=== PATIENT | female | born 1985 | race Caucasian/White ===

== ENCOUNTER 2021-01-24 12:06 | Emergency (ER) | payer BC, SELFPAY ==
--- NOTE | ~2021-01-24 | CT_ITS ---
EXAMINATION: CT ABDOMEN AND PELVIS WITH CONTRAST CLINICAL INFORMATION: Left-sided abdominal pain COMPARISON: Previous CT of the abdomen and pelvis June 2018 TECHNIQUE: Multidetector volumetric images were obtained from the superior aspect of the liver through the pubic symphysis following administration 85 mL of Omnipaque 350 intravenous contrast. Sagittal and coronal reformatted images were obtained on the technologist's workstation. Oral contrast: Yes This CT examination was performed using dose optimization techniques as appropriate, variously including the following: *Automated exposure control *Adjustment of mA and/or kV according to patient size (this includes techniques or standardized protocols for targeted exams where dose is matched to indication/reason for exam; i.e. extremities or head) *Use of iterative reconstruction technique DLP: 307 mGy-cm FINDINGS: LUNG BASES: The visualized lung bases are unremarkable. LIVER, GALLBLADDER, AND BILIARY TREE: The liver is normal in size, shape, and attenuation. No focal hepatic lesion or biliary ductal dilatation is present. The gallbladder is unremarkable with no evidence of radiopaque gallstones, gallbladder wall thickening, or obvious pericholecystic inflammatory changes. PANCREAS: Unremarkable. SPLEEN: Unremarkable. ADRENAL GLANDS: Unremarkable. KIDNEYS AND URETERS: The kidneys are normal in size, shape, and attenuation. No hydronephrosis, hydroureter, or calculi seen. No perinephric stranding. BLADDER: Unremarkable. GASTROINTESTINAL TRACT: The small and large bowel are unremarkable. The appendix is unremarkable. ABDOMINAL WALL: No significant hernia is appreciated. LYMPH NODES: Normal. VASCULAR: Unremarkable. PELVIC VISCERA: There is a 2.3 cm right sided ovarian or adnexal cyst. There is a small amount of fluid in the pelvis. Uterus and left adnexa are unremarkable. There are prominent pelvic vessels questionable for pelvic congestion. OSSEOUS STRUCTURES: Unremarkable. CT/CT abdomen pelvis w con IMPRESSION: Small right adnexal cyst and small amount of fluid in the pelvis. Findings are questionable for a ruptured ovarian cyst. This could be better evaluated with pelvic ultrasound. Prominent pelvic vessels questionable for pelvic congestion.
[2021-01-24 12:23] VITALS: BP 111/71; PULSE 80; RESP 18; TEMP 36.3; O2SAT 100; BMI 19.2
--- NOTE | 2021-01-24 15:32 | ED_ITS ---
HPI - Abdominal Pain General Chief Complaint: Abdominal Pain Stated Complaint: abd pain Time Seen by Provider: 01/24/21 15:06 Source: patient Mode of arrival: ambulatory Limitations: no limitations History of Present Illness HPI narrative: 35-year-old female previously healthy here with complaints of abdominal pain intermittent over the last month worsened over the last 24-36 hours. No associated nausea, vomiting, diarrhea, urinary symptoms, fevers, chills. She does have occasional constipation but her last BM was yesterday and normal. Menses are regular. No vaginal bleeding or discharge that is irregular. Went to urgent care today referred into the emergency department for further evaluation. Patient tells me that pain is worsened with eating fatty or greasy foods and sometimes radiates to her back. Related Data Previous Rx's Medication Instructions Recorded nitrofurantoin 100 mg PO Q12H 5 Days #10 cap 01/24/21 monohydrate/macrocrystals 100 mg capsule (Macrobid) Allergies Allergy/AdvReac Type Severity Reaction Status Date / Time No Known Allergies Allergy Unverified 11/28/19 17:23 [No Known Allergies*] Review of Systems Review of Systems Yes all other systems are reviewed and are negative Constitutional: Reports no additional constitutional complaints, Denies body ache(s), Denies chills, Denies fever(s), Denies headache(s) and Denies weakness Eyes: Reports no additional eye complaints and Denies change in vision Reports system reviewed and no additional complaints, except as documented, Denies dizziness, Denies headache(s), Denies nasal congestion, Denies nasal di scharge and Denies neck pain Cardiovascular: Reports no additional cardiovascular complaints, Denies chest pain, Denies leg edema and Denies dyspnea Respiratory: Reports no additional respiratory complaints, Denies cough and Denies dyspnea Gastrointestinal: Reports no additional gastrointestinal complaints, Reports abdominal pain, Denies diarrhea, Denies nausea and Denies vomiting Genitourinary: Reports no additional female genitourinary complaints and Denies urinary incontinence Musculoskeletal: Reports no additional musculoskeletal complaints, Denies back pain, Denies arthralgias, Denies joint swelling, Denies neck pain, Denies numbness and Denies tingling Skin/Breast: Reports system reviewed and no additional complaints, except as docu and Denies rash Reports system reviewed and no additional complaints, except as documented, Denies Abnormal speech present, Denies dizziness, Denies headache(s), Denies numbness, Denies tingling and Denies weakness Physical Exam Vital Signs: Vital Signs: Last Vital Signs Temp 97.3 F 01/24/21 12:23 Pulse 80 01/24/21 12:23 Resp 18 01/24/21 12:23 BP 111/71 01/24/21 12:23 Pulse Ox 100 01/24/21 12:23 Body Mass Index 19.2 Const: General: cooperative, healthy appearing, comfortable and no acute distress Orientation/consciousness: patient oriented x3 Limitations: no limitations HENMT: Head: Yes normal to inspection Ears: hearing grossly normal bilaterally and TM's normal bilaterally General nose exam: Normal external nose present Face and sinus: Yes normal facial exam Mouth: Normal oral and palatal mucosa present Throat: Yes posterior oropharynx normal, Yes tonsils normal and Yes uvula midline Eyes: General: appearance normal, both eyes and all related structures Pupils: Equal, round and reactive pupils present Neck: Neck: Yes normal visual inspection Chest: Chest palpation & inspection: normal inspection of the chest Resp: Effort & Inspection: normal respiratory effort Auscultation: clear to auscultation bilaterally Cardio: Rate: regular rate Rhythm: regular rhythm Peripheral pulses: Peripheral pulses 2+ throughout GI: Inspection: Yes normal to inspection Palpation (GI): Soft to palpation and Tenderness to palpation present (GI) (Diffusely tender. No rebound or guarding) Auscultation: normal bowel sounds Back/Spine/Pelvis: Thoracic/Lumbar Spine: thoracic and lumbar spine normal to inspection Skin: General skin exam: no rashes or lesions noted Neuro: General: patient oriented x3, no focal motor deficits and normal sensation to monofilament Cranial nerves: Yes Equal, round and reactive pupils present Cognition (Neuro): normal cognition Speech: No Abnormal speech present Gait exam (Neuro): Normal gait present Motor exam (neuro): 5/5 motor strength present throughout Extrem: General: Yes normal to inspection, Yes no pedal edema and Yes no calf tenderness Course Course Course Narrative: 35-year-old female here with complaints of intermittent abdominal pain worsened with eating certain foods and radiating to the back for about 1 month worsened over the last 24-36 hours. No other associated symptoms. Went to urgent care and referred into the emergency department for further evaluation. On exam the patient has diffuse abdominal pain with no focal tenderness. Will check, labs, CT A/P 1730- CT A/P IMPRESSION: Small right adnexal cyst and small amount of fluid in the pelvis. Findings are questionable for a ruptured ovarian cyst. This could be better evaluated with pelvic ultrasound. Prominent pelvic vessels questionable for pelvic congestion.? Labs unremarkable. UA consistent with UTI. Discussed findings with patient.. Reviewed worrisome signs symptoms of when to return to the emergency department. Comfortable discharge home. MDM - Abdominal Pain MDM Narrative Medical decision making narrative: gallstones/acute jenni Differential Diagnosis Differential diagnosis: Likely gastritis Medical Records Attestation: I reviewed the patient's medical records. Lab Data Attestation: I reviewed the patient's lab results. Result diagrams: 01/24/21 15:32 01/24/21 15:32 Labs: Lab Results 01/24/21 01/24/21 01/24/21 Range/Units 15:32 15:32 15:32 WBC 7.2 (4.8-10.8) X10*3/uL RBC 4.34 (4.20-5.50) X10*6/uL Hgb 12.1 (12.0-16.0) g/dl Hct 36.9 L (37.0-47.0) % MCV 85.0 (80.0-98.0) fL MCH 27.9 (27.0-33.0) pg MCHC 32.8 (31.0-35.0) g/dl RDW 14.1 (11.0-16.0) % Plt Count 224 (160-400) X10*3/uL MPV 9.6 (9.4-12.3) fL Immature Gran % (Auto) 0.1 (0.0-0.4) % Neut % (Auto) 69.4 (45-73) % Lymph % (Auto) 23.2 (20-40) % [place] % (Auto) 6.6 (2-11) % Eos % (Auto) 0.6 (0-4) % Baso % (Auto) 0.1 (0-2) % Lymph # (Auto) 1.7 (1.2-4.9) X10*3/uL [place] # (Auto) 0.5 (0.1-1.2) X10*3/uL Eos # (Auto) 0.0 (0.0-0.4) X10*3/uL Baso # (Auto) 0.0 (0.0-0.2) X10*3/uL Abs Immat Gran (auto) 0.01 (0.00-0.03) X10*3/uL Absolute Neuts (auto) 5.0 (2.0-8.3) x10*3/uL Absolute Nucleated RBC 0.000 (0.0-0.012) X10*3/uL Nucleated RBC % (auto) 0.0 (0.0-0.2) /100WBC Sodium 140 (135-145) mmol/L Potassium 3.7 (3.3-5.1) mmol/L Chloride 105 (96-108) mmol/L Carbon Dioxide 28 (22-29) mmol/L Anion Gap 11 L (12-20) BUN 7 L (9-16) mg/dL Creatinine 0.67 (0.5-1.4) mg/dL Estim Creat Clear Calc 88.1 Estimated GFR > 60 Random Glucose 87 (60-115) mg/dL Calcium 8.7 (8.4-10.2) mg/dL Total Bilirubin 0.6 (0.0-1.0) mg/dL Direct Bilirubin 0.3 (0.0-0.5) mg/dL AST 16 (5-31) U/L ALT 12 (0-31) U/L Alkaline Phosphatase 42 (39-117) U/L Total Protein 7.3 (6.5-8.0) g/dL Albumin 4.5 (3.5-5.0) g/dL Lipase 21 (8-78) U/L Urine Color YELLOW Urine Appearance HAZY Urine pH 5.5 (5.0-8.0) Ur Specific [place] >= 1.030 H (1.005-1.025) Urine Protein NEG (NEG-TRACE) MG/DL Urine Glucose (UA) NEG (NEG) MG/DL Urine Ketones 40 (NEG) MG/DL Urine Blood 1+ H (NEG) Urine Nitrite NEG (NEG) Ur Leukocyte Esterase 1+ H (NEG) Urine RBC 1-4 (0) /HPF Urine WBC 10-14 H (0-4) /HPF Ur Squamous Epith Cells 1+ /LPF Urine Bacteria TRACE /LPF Urine Mucus 2+ /LPF Urine Yeast TRACE /HPF Urine Test (NEGATIVE) 01/24/21 Range/Units 15:32 WBC (4.8-10.8) X10*3/uL RBC (4.20-5.50) X10*6/uL Hgb (12.0-16.0) g/dl Hct (37.0-47.0) % MCV (80.0-98.0) fL MCH (27.0-33.0) pg MCHC (31.0-35.0) g/dl RDW (11.0-16.0) % Plt Count (160-400) X10*3/uL MPV (9.4-12.3) fL Immature Gran % (Auto) (0.0-0.4) % Neut % (Auto) (45-73) % Lymph % (Auto) (20-40) % [place] % (Auto) (2-11) % Eos % (Auto) (0-4) % Baso % (Auto) (0-2) % Lymph # (Auto) (1.2-4.9) X10*3/uL [place] # (Auto) (0.1-1.2) X10*3/uL Eos # (Auto) (0.0-0.4) X10*3/uL Baso # (Auto) (0.0-0.2) X10*3/uL Abs Immat Gran (auto) (0.00-0.03) X10*3/uL Absolute Neuts (auto) (2.0-8.3) x10*3/uL Absolute Nucleated RBC (0.0-0.012) X10*3/uL Nucleated RBC % (auto) (0.0-0.2) /100WBC Sodium (135-145) mmol/L Potassium (3.3-5.1) mmol/L Chloride (96-108) mmol/L Carbon Dioxide (22-29) mmol/L Anion Gap (12-20) BUN (9-16) mg/dL Creatinine (0.5-1.4) mg/dL Estim Creat Clear Calc Estimated GFR Random Glucose (60-115) mg/dL Calcium (8.4-10.2) mg/dL Total Bilirubin (0.0-1.0) mg/dL Direct Bilirubin (0.0-0.5) mg/dL AST (5-31) U/L ALT (0-31) U/L Alkaline Phosphatase (39-117) U/L Total Protein (6.5-8.0) g/dL Albumin (3.5-5.0) g/dL Lipase (8-78) U/L Urine Color Urine Appearance Urine pH (5.0-8.0) Ur Specific [place] (1.005-1.025) Urine Protein (NEG-TRACE) MG/DL Urine Glucose (UA) (NEG) MG/DL Urine Ketones (NEG) MG/DL Urine Blood (NEG) Urine Nitrite (NEG) Ur Leukocyte Esterase (NEG) Urine RBC (0) /HPF Urine WBC (0-4) /HPF Ur Squamous Epith Cells /LPF Urine Bacteria /LPF Urine Mucus /LPF Urine Yeast /HPF Urine Test NEGATIVE (NEGATIVE) Imaging Data CT scan - abdomen: Attestation: I personally reviewed and interpreted this imaging study as follows: Radiologist's impression: IMPRESSION: Small right adnexal cyst and small amount of fluid in the pelvis. Findings are questionable for a ruptured ovarian cyst. This could be better evaluated with pelvic ultrasound. Prominent pelvic vessels questionable for pelvic congestion.? Discharge Plan Discharge Clinical Impression: Pelvic congestion syndrome, Ovarian cyst, UTI (urinary tract infection) Patient Disposition: Home, Self-Care Instructions: Ovarian Cyst (ED), Urinary Tract Infection in Women (ED) Additional Instructions: Your CT shows a right-sided ovarian cyst as well as evidence of pelvic congestion syndrome. Follow-up with Gynecology to discuss your options. We are also treating for urinary tract infection. Increase fluids, rest As far as your other complaints of abdominal pain please follow-up with your primary care doctor Prescriptions: New nitrofurantoin monohyd/m-cryst [Macrobid] 100 mg capsule 100 mg PO Q12H 5 Days Qty: 10 RF: 0 Referrals: Physician,None [Primary Care Provider] - 2 days Alfonso Govea MD [Physician] - 2 days Interventions: ED Discharge Assessment Last Done: 01/24/21 17:11 Discharge Date/Time: 01/24/21 17:12 [facility] Past Medical History Attestation statement: The following information was validated with the patient. Source: old records reviewed and nursing notes reviewed Social History Social History Advance Directives: No Advance Directives Information Provided: No
[2021-01-24 15:38] LABS: MANUAL DIFF FLAG NO
[2021-01-24 15:40] LABS: Basophils Percent Auto 0.1 % (0-2); Eosinophils Percent Auto 0.6 % (0-4); Hematocrit 36.9 % (37.0-47.0); Hemoglobin 12.1 g/dl (12.0-16.0); Imm Gran Abs Auto 0.01 X10*3/uL (0.00-0.03); Imm Gran Pct Auto 0.1 % (0.0-0.4); Lymphocytes Absolute Auto 1.7 X10*3/uL (1.2-4.9); Lymphocytes Percent Auto 23.2 % (20-40); Mean Corpuscular HGB Conc 32.8 g/dl (31.0-35.0); Mean Corpuscular Hemoglobin 27.9 pg (27.0-33.0); Mean Platelet Volume 9.6 fL (9.4-12.3); Monocytes Absolute Auto 0.5 X10*3/uL (0.1-1.2); Monocytes Percent Auto 6.6 % (2-11); Neutrophils Percent Auto 69.4 % (45-73); Platelet Count 224 X10*3/uL (160-400); Red Blood Count 4.34 X10*6/uL (4.20-5.50); Red Cell Distribution Width 14.1 % (11.0-16.0); White Blood Count 7.2 X10*3/uL (4.8-10.8)
[2021-01-24 15:44] LABS: Appearance Urine HAZY; Color Urine YELLOW; Glucose Urine UA NEG (NEG); Leukocyte Esterase Urine 1+ (NEG); Nitrite Urine NEG (NEG); PH 5.5 (5.0-8.0); Specific Gravity - Urine >= 1.030 (1.005-1.025); UACC Culture Trigger YES; Urine Blood 1+ (NEG); Urine Ketones 40 MG/DL (NEG); Urine Protein NEG (NEG-TRACE)
[2021-01-24 15:47] LABS: UPreg QC Valid YES; Urine Pregnancy NEGATIVE (NEGATIVE)
[2021-01-24 15:54] LABS: Bacteria Urine TRACE /LPF; Mucus Urine 2+ /LPF; Squamous Epithelial Cell Urine 1+ /LPF
[2021-01-24 15:59] LABS: Alanine Aminotransferase 12 U/L (0-31); Albumin Level 4.5 g/dL (3.5-5.0); Alkaline Phosphatase 42 U/L (39-117); Anion Gap 11 (12-20); Aspartate Amino Transferase 16 U/L (5-31); Bilirubin Direct 0.3 mg/dL (0.0-0.5); Bilirubin Total 0.6 mg/dL (0.0-1.0); Blood Urea Nitrogen 7 mg/dL (9-16); Calcium 8.7 mg/dL (8.4-10.2); Carbon Dioxide 28 mmol/L (22-29); Chloride 105 mmol/L (96-108); Creatinine Clr Calc Pharmacy 88.1; Estimated Glomerular Filt Rate > 60; Glucose Random 87 mg/dL (60-115); Lipase 21 U/L (8-78); Potassium 3.7 mmol/L (3.3-5.1); Sodium 140 mmol/L (135-145); Total Protein 7.3 g/dL (6.5-8.0)
[2021-01-24] MEDS: iohexoL 350 MG/ML 100 ML INFUS..BTL IV (16:27)
== END 2021-01-24 17:12 | disposition home or self-care (01) ==
PROVIDERS: Nurse Practitioner Family; Emergency Provider Emergency Medicine
DX: N39.0 Urinary tract infection, site not specified (principal); N94.89 Other specified conditions associated with female genital organs and menstrual cycle; N83.209 Unspecified ovarian cyst, unspecified side
CPT/HCPCS: 36415; 74177; 80048; 80076; 81001; 81025; 83690; 85025; 87086; 87147; 99284; Q9967

== ENCOUNTER 2021-02-08 11:38 | Outpatient (REF) | payer BC, SELFPAY ==
[2021-02-08 16:06] LABS: CT PCR NOT DETECTED (Not Detect.); NG PCR NOT DETECTED (Not Detect.)
[2021-02-09 09:40] LABS: BV Int Neg Control Negative (Negative); BV Int Pos Control Positive (Positive)
== END 2021-02-08 11:39 | disposition home or self-care (01) ==
LOC: HO.LAB 11:38
PROVIDERS: Visit Provider Obstetrics & Gynecology
DX: R10.2 Pelvic and perineal pain (principal); B37.3 Candidiasis of vulva and vagina; N83.209 Unspecified ovarian cyst, unspecified side; N39.0 Urinary tract infection, site not specified; N94.89 Other specified conditions associated with female genital organs and menstrual cycle
CPT/HCPCS: 87086; 87147; 87480; 87491; 87510; 87591; 87660

== ENCOUNTER 2021-03-04 10:35 | Outpatient (REF) | payer BC, SELFPAY ==
[2021-03-04 12:30] LABS: HIV AB/AG Nonreactive (Nonreactive); HIV Num 1 0.07 S/CO (0.00-0.99); ~HepC Num1 0.12 S/CO (0.00-0.79); ~Hepatitis C Antibody Nonreactive (Nonreactive)
[2021-03-04 12:31] LABS: HBsAGNum1 0.29 S/CO (0.00-0.99); Hepatitis B Surface Antigen Negative (Negative)
[2021-03-05 08:26] LABS: Syphilis Screen Nonreactive (Nonreactive)
== END 2021-03-04 10:36 | disposition home or self-care (01) ==
LOC: HO.LAB 10:35
PROVIDERS: Visit Provider Obstetrics & Gynecology
DX: N76.0 Acute vaginitis (principal); B96.89 Other specified bacterial agents as the cause of diseases classified elsewhere; Z11.3 Encounter for screening for infections with a predominantly sexual mode of transmission; Z11.4 Encounter for screening for human immunodeficiency virus [HIV]; Z11.59 Encounter for screening for other viral diseases
CPT/HCPCS: 36415; 86780; 86803; 87340; 87389

== ENCOUNTER 2021-04-12 10:50 | Outpatient (REF) | payer BC, SELFPAY ==
--- NOTE | ~2021-04-12 | US_ITS ---
EXAMINATION: US PELVIS CLINICAL INFORMATION: Ovarian cyst COMPARISON: None TECHNIQUE: Ultrasound of the pelvis is performed using both transabdominal and transvaginal transducers along with Doppler. Transvaginal imaging is performed due to inadequate visualization transabdominally. FINDINGS: Uterus: The uterus is anteverted, anteflexed and measures 6.6 cm in length, 4.1 cm AP and 5.0 cm in transverse dimension. The double wall endometrial thickness is 0.7 cm. The uterus is heterogeneous and has normal myometrial echogenicity. Previously seen 0.8 cm hypoechoic fibroid is not seen at this time. There is a new fibroid seen in the left body of uterus measuring 0.7 x 0.5 x 0.6 cm. Adnexa: Both ovaries are visualized. There is normal color flow to the adnexa. There is no ovarian torsion. There is no pelvic ascites or fluid collection. Right ovary measures 4.3 x 2.3 x 3.5 cm and volume 18.1 mL. There is an anechoic cyst with thick septation or solid component measuring 3.0 x 2.0 x 2.5 cm. There is small amount of free fluid adjacent to the ovary. Left ovary measures 4.8 x 1.1 x 3.4 cm and volume 9.4 mL. There is a small amount of free fluid adjacent to the ovary. US/US pelvic and transvaginal IMPRESSION: Heterogenous uterus with a new fibroid seen. Previously seen fibroid measuring 0.8 cm is not seen at this time. 3 cm cyst with thick septation or solid component. On 2018 exam there was a similar finding of a ovoid cystic lesion with solid component measuring 2.9 cm in maximum dimension. I doubt if this is the same cyst. Unremarkable left ovary. Free fluid in bilateral adnexa surrounding the ovaries.
== END 2021-04-12 10:51 | disposition home or self-care (01) ==
LOC: HO.US 10:50
PROVIDERS: Visit Provider Obstetrics & Gynecology
DX: N83.209 Unspecified ovarian cyst, unspecified side (principal)
CPT/HCPCS: 76830; 76856

== ENCOUNTER → 2021-04-26 12:52 | Outpatient (BNVA) | payer BC, SELFPAY | PROVIDERS: Visit Provider Obstetrics & Gynecology ==

== ENCOUNTER 2021-04-27 08:18 | Outpatient (REF) | payer BC, SELFPAY ==
[2021-04-29 07:06] LABS: CA-125 9 U/mL (<35)
== END 2021-04-27 08:19 | disposition home or self-care (01) ==
LOC: HO.LAB 08:18
PROVIDERS: Visit Provider Obstetrics & Gynecology
DX: N83.299 Other ovarian cyst, unspecified side (principal)
CPT/HCPCS: 36415; 86304

== ENCOUNTER 2021-05-19 09:23 | Outpatient (REF) | payer BC, SELFPAY ==
--- NOTE | ~2021-05-19 | MR_ITS ---
EXAMINATION: MRI PELVIS WITH AND WITHOUT CONTRAST CLINICAL INFORMATION: Ovarian cyst COMPARISON: Pelvic ultrasound 04/12/2021. CT 01/24/2021 TECHNIQUE: Multiple routine MRI sequences through the pelvis were obtained on a high-field 1.5 Claudia MRI before and after the uneventful administration of 5 mL of Gadavist gadolinium-based IV contrast. FINDINGS: UTERUS: Anteverted uterus has a normal configuration and measures 7.3 cm [id number] x 3.8 cm anterior-posterior x 4.1 cm transverse. Normal endometrial thickness, 0.4 cm. There is focal thickening of the junctional zone along the anterior uterine body/fundus measuring 1.4 cm in thickness. There are a few foci of increased T2 signal internally. CERVIX: Multiple nabothian cysts are identified. VAGINA: Normal; no mass seen. RIGHT OVARY: The right ovary measures 2.8 x 2.3 x 2.1 cm. Multiple follicles are present. The dominant follicle measures 1.6 cm. There is no suspicious adnexal mass. LEFT OVARY: The left ovary measures 3.5 x 1.9 x 1.3 cm. Small follicles with no adnexal mass. KIDNEYS: Two normally positioned kidneys are seen. No hydronephrosis. BLADDER: Urinary bladder normal. PELVIC FREE FLUID: Small volume of pelvic free fluid. LYMPH NODES: No pathologically enlarged lymph nodes. OSSEOUS STRUCTURES: No acute or suspicious osseous abnormalities. MR/MR pelvis wo/w con IMPRESSION: No suspicious adnexal mass. Multiple follicles of the right ovary. Small volume of pelvic free fluid may be physiologic. There is focal thickening of the junctional zone of the uterine body/fundus anteriorly. This could represent focal adenomyosis versus a fibroid.
== END 2021-05-19 09:24 | disposition home or self-care (01) ==
LOC: HO.MRI 09:23
PROVIDERS: Visit Provider Obstetrics & Gynecology
DX: N83.299 Other ovarian cyst, unspecified side (principal)
CPT/HCPCS: 72197; A9585

== ENCOUNTER → 2021-06-01 14:52 | Outpatient (BNVA) | payer BC, SELFPAY | PROVIDERS: Visit Provider Obstetrics & Gynecology | DX: N83.299 Other ovarian cyst, unspecified side (principal) | CPT/HCPCS: 99212 ==

== ENCOUNTER 2021-09-02 15:30 | Outpatient (REF) | payer BC, SELFPAY ==
[2021-09-09 06:46] LABS: HPV mRNA E6/E7 rflx Not Detected (Not Detected)
== END 2021-09-02 15:31 | disposition home or self-care (01) ==
LOC: HO.LAB 15:30
PROVIDERS: Visit Provider Obstetrics & Gynecology
DX: Z01.419 Encounter for gynecological examination (general) (routine) without abnormal findings (principal); Z11.51 Encounter for screening for human papillomavirus (HPV)
CPT/HCPCS: 87624; 88142

== ENCOUNTER 2022-10-06 09:15 | Outpatient (AMB) | payer BC, SELFPAY ==
[2022-10-06 09:28] VITALS: BP 100/64; BMI 18.7
--- NOTE | 2022-10-06 09:28 | A.OFFVIS_ITS ---
Intake Vital Signs 10/06/22 09:28 Height 5 ft 2 in Weight 102 lb BMI 18.7 BP 100/64 Intake Visit Reasons: Annual/DO NOT RS Management Recruiter Required: No Information Interpreted: non-clinical & clinical Temporary Data Entry Clerk: Temporary Data Entry Clerk Present (Aidyn) Allergies No Known Allergies [No Known Allergies*] Allergy (Verified 10/06/22 09:32) Is last menstrual period known: Yes Last menstrual period: 09/22/22 Post menopausal: No HPI HPI Comments History of Present Illness Details Presenting for annual exam. No complaints. Last Pap/HPV was in 09/01 was negative PFSH Surgical History H/O tubal ligation Hx of section Social History Alcohol intake: never Patient Tobacco Use Status: Never used Tobacco Female Reproductive History Menstrual Age of Menarche: 12 Duration of menses: 3-5 days Date of last menstrual period: 09/22/22 control method: permanent sterilization Total pregnancies: 5 Full term: 3 Number of Living Children: 3 Ab spontaneous: 2 Date of last pap smear: 09/03/21 (negative) Review of Systems Const All systems reviewed & are unremarkable except as noted in HPI and below Card Reports as per HPI Resp Reports as per HPI GI Reports as per HPI and Reports no additional complaints Reports as per HPI Physical Exam Vital Signs: Last Vital Signs BP 100/64 10/06/22 09:28 BMI result Body Mass Index 18.7 Const General: cooperative, healthy appearing and comfortable Chest Chest palpation & inspection: normal inspection of the chest and normal palpation of entire chest wall Breast/axilla inspection: normal inspection of the breasts and normal inspection of the axillae Breast/axilla palpation: normal palpation of the breasts, normal palpation of the axillae and no axillary lymphadenopathy Resp Effort & Inspection: normal respiratory effort Auscultation: clear to auscultation bilaterally Percussion: percussion normal Cardio Palpation: normal PMI Rate: regular rate Rhythm: regular rhythm Heart sounds: no murmurs and no rubs Peripheral pulses: Peripheral pulses 2+ throughout GI Inspection: Yes normal to inspection Palpation (GI): Soft to palpation, nontender, no guarding, not rigid and No hepatosplenomegaly present Percussion: Yes normal to percussion Auscultation: normal bowel sounds Rectal Exam - Female: deferred General: Yes bladder normal to palpation External Female Exam: No lesion Speculum Exam - Vagina: normal appearance of the vagina, normal palpation, normal vaginal discharge and not erythematous Speculum Exam - Cervix: normal appearance of the cervix and normal palpation Bimanual exam- vagina & uterus: normal bimanual exam, normal palpation, uterine size normal, bladder normal to palpation, consistency normal and normal palpation Bimanual Exam- Adnexa, other: normal adnexae, no masses and no tenderness Assessment & Plan Assessment & Plan (1) Well woman exam: Code(s): Z01.419 - Encounter for gynecological examination (general) (routine) without abnormal findings Plan: Cotesting not indicated this year. Counseled the patient about the recommended dietary allowance of 1000 mg of Calcium & 600 IU of vitamin D. The patient was instructed to perform monthly self-breast exams and to schedule an annual exam in a year; All questions answered and the patient verbalized understanding. Instructed the patient to schedule annual exam in a year Coding Level of Care Code Est Pt Prev Care 18-39y(97648) Diagnoses Well woman exam Z01.419
== END 2022-10-06 09:51 | disposition home or self-care (01) ==
LOC: HO.HWS 09:15
PROVIDERS: Visit Provider Obstetrics & Gynecology
DX: Z01.419 Encounter for gynecological examination (general) (routine) without abnormal findings (principal)
CPT/HCPCS: 99395

== ENCOUNTER → 2022-10-06 09:15 | Outpatient (BNVA) | payer BC, SELFPAY | PROVIDERS: Visit Provider Obstetrics & Gynecology ==

== ENCOUNTER 2022-11-08 11:35 | Outpatient (REF) | payer BC, SELFPAY ==
[2022-11-08 18:51] LABS: CT PCR NOT DETECTED (Not Detect.); NG PCR NOT DETECTED (Not Detect.)
[2022-11-09 14:04] LABS: BV Int Neg Control Negative (Negative); BV Int Pos Control Positive (Positive)
== END 2022-11-08 11:36 | disposition home or self-care (01) ==
LOC: HO.LNP 11:35
PROVIDERS: Visit Provider Advanced Practice Midwife
DX: N89.8 Other specified noninflammatory disorders of vagina (principal); R10.2 Pelvic and perineal pain
CPT/HCPCS: 0353U; 87480; 87510; 87660

== ENCOUNTER 2022-11-08 11:35 | Outpatient (AMB) | payer BC, SELFPAY ==
[2022-11-08 11:46] VITALS: BP 92/50; BMI 18.7
--- NOTE | 2022-11-08 11:46 | A.OFFVIS_ITS ---
Intake Vital Signs 11/08/22 11:46 Height 5 ft 2 in Weight 102 lb BMI 18.7 BP 92/50 L Intake Visit Reasons: vaginal itching Intake Note: The patient agreed to use of a medical librarian during this encounter. Scribed for BRANDI Izquierdo by Celia Phelan medical librarian, on 11/08/2022 at 11:59 am EST. Fibrous Plasterer: Fibrous Plasterer Present (Bibiana) Allergies No Known Allergies [No Known Allergies*] Allergy (Verified 11/08/22 11:49) Is last menstrual period known: Yes Last menstrual period: 10/11/22 HPI HPI Comments History of Present Illness Details Reports vaginal itching Monday and Monday and took a bath with baking soda which seemed to help. Currently sexually active w/. Complains or pelvic pain and occasional bloating. Menses are normal and regular. [facility] Medical History (Updated 11/08/22 @ 12:30 by Mariaelena Parker CNM) Pelvic pain Surgical History H/O tubal ligation Hx of section Social History Alcohol intake: never Patient Tobacco Use Status: Never used Tobacco Female Reproductive History Menstrual Age of Menarche: 12 Date of last menstrual period: 10/11/22 Physical Exam Vital Signs: Last Vital Signs BP 92/50 L 11/08/22 11:46 BMI result Body Mass Index 18.7 Const General: cooperative, healthy appearing, comfortable, no acute distress, well developed, alert and awake GI Other: midline c/s scarring General: Yes bladder normal to palpation External Female Exam: normal external appearance and normal appearance of the urethra Speculum Exam - Vagina: normal appearance of the vagina, normal palpation and abnormal vaginal discharge (scant) Speculum Exam - Cervix: normal appearance of the cervix and normal palpation Bimanual exam- vagina & uterus: normal bimanual exam, normal palpation, bladder normal to palpation and normal palpation Bimanual Exam- Adnexa, other: normal adnexae and no masses Assessment & Plan Assessment & Plan (1) Vaginal itching: Code(s): N89.8 - Other specified noninflammatory disorders of vagina Plan: Discussed: BV testing and GC/CT panel done today. Await results and treat accordingly. Informed of Boric acid protocol. Advised to clean with water only, no soaps to the area, dry well and wear cotton underwear. All of her questions and concerns were addressed to the best of my ability and shared decision making. She is agreeable to plan of care. (2) Pelvic pain: Comment: US and follow up Code(s): R10.2 - Pelvic and perineal pain Plan: Pelvic US ordered; follow up in person for results. Orders: Orders Bacterial Vaginosis Panel Today N89.8 - Other specified noninflammatory disorders of vagina, R10.2 - Pelvic and perineal pain CT NG by PCR Today N89.8 - Other specified noninflammatory disorders of vagina, R10.2 - Pelvic and perineal pain US pelvic and transvaginal Today R10.2 - Pelvic and perineal pain Coding Level of Care Code Est Pt Level 3 (75613) Diagnoses Vaginal itching N89.8 Pelvic pain R10.2
== END 2022-11-08 12:11 | disposition home or self-care (01) ==
LOC: HO.HWS 11:35
PROVIDERS: Visit Provider Advanced Practice Midwife
DX: N89.8 Other specified noninflammatory disorders of vagina (principal); R10.2 Pelvic and perineal pain
CPT/HCPCS: 99213

== ENCOUNTER 2022-11-08 12:07 | Outpatient (REF) | payer BC, SELFPAY | END 2022-11-08 12:08 | disposition home or self-care (01) | LOC: HO.LAB 12:07 | PROVIDERS: Visit Provider Advanced Practice Midwife | DX: Z13.89 Encounter for screening for other disorder (principal) ==

== ENCOUNTER 2022-11-25 11:17 | Outpatient (REF) | payer BC, SELFPAY ==
--- NOTE | ~2022-11-25 | US_ITS ---
EXAMINATION: US PELVIS COMPLETE CLINICAL INFORMATION: Pelvic pain COMPARISON: Pelvic ultrasound 10/10/2021, MR pelvis 05/19/2021 TECHNIQUE: Transabdominal and transvaginal imaging was performed. FINDINGS: The uterus is of normal size measuring 10.0 x 4.0 x 4.7 cm. Homogeneously myometrial echotexture which can be seen in the setting of adenomyosis, better characterized on prior MR. A regular homogeneous endometrium is identified measuring 0.7 cm. Nabothian cysts in the cervix. Subcentimeter intramural right body myoma not significant changed from prior measuring 0.7 cm previously 0.8 cm. Both ovaries are of normal size and echogenicity. The right measures 3.6 x 3.3 x 2.6 cm for a volume of 13.2 mL. The left measures 4.2 x 1.2 x 2.7 cm for a volume of 7.1 mL. There is trace physiologic volume pelvic free fluid. Dilated adnexal vessels bilaterally. US/US pelvic and transvaginal IMPRESSION: 1. Dilated adnexal vessels bilaterally which can be seen in the setting of pelvic congestion syndrome in the appropriate clinical setting. 2. A 0.7 cm intramural right body myoma not significant changed from prior. 3. Homogeneously myometrial echotexture which can be seen in the setting of adenomyosis, better characterized on prior MR.
== END 2022-11-25 11:18 | disposition home or self-care (01) ==
LOC: HO.US 11:17
PROVIDERS: Visit Provider Advanced Practice Midwife
DX: R10.2 Pelvic and perineal pain (principal)
CPT/HCPCS: 76830; 76856

== ENCOUNTER 2022-12-07 11:23 | Outpatient (AMB) | payer BC, SELFPAY ==
--- NOTE | 2022-12-07 11:25 | A.OFFVIS_ITS ---
Intake Vital Signs 12/07/22 11:26 Height 5 ft 2 in Weight 102 lb BMI 18.7 BP 94/56 L Intake Visit Reasons: US follow up Intake Note: The patient agreed to use of a medical management trainer during this encounter. Scribed for BRANDI Izquierdo by Celia Phelan medical management trainer, on 12/07/2022 at 11:37 am EST. Allergies No Known Allergies [No Known Allergies*] Allergy (Verified 12/07/22 11:25) HPI HPI Comments History of Present Illness Details She is here to discuss US results regarding pelvic pain. Reports pelvic pain has resolved since last visit. Reports abdominal bloating but it resolves when she takes a warm shower. Menses lasting 2-3 days;not heavy. PFSH Medical History Uterine fibroid Pelvic pain Surgical History Hx of section H/O tubal ligation Social History Alcohol intake: never Patient Tobacco Use Status: Never used Tobacco Female Reproductive History Menstrual Age of Menarche: 12 Physical Exam Vital Signs: Last Vital Signs BP 94/56 L 12/07/22 11:26 BMI result Body Mass Index 18.7 Const General: cooperative, healthy appearing, comfortable, no acute distress, well developed, alert and awake Results Reviewed Results Reviewed: EXAMINATION: US PELVIS COMPLETE CLINICAL INFORMATION: Pelvic pain COMPARISON: Pelvic ultrasound 10/10/2021, MR pelvis 05/19/2021 TECHNIQUE: Transabdominal and transvaginal imaging was performed. FINDINGS: The uterus is of normal size measuring 10.0 x 4.0 x 4.7 cm. Homogeneously myometrial echotexture which can be seen in the setting of adenomyosis, better characterized on prior MR. A regular homogeneous endometrium is identified measuring 0.7 cm. Nabothian cysts in the cervix. Subcentimeter intramural right body myoma not significant changed from prior measuring 0.7 cm previously 0.8 cm. Both ovaries are of normal size and echogenicity. The right measures 3.6 x 3.3 x 2.6 cm for a volume of 13.2 mL. The left measures 4.2 x 1.2 x 2.7 cm for a volume of 7.1 mL. There is trace physiologic volume pelvic free fluid. Dilated adnexal vessels bilaterally. US/US pelvic and transvaginal IMPRESSION: 1. Dilated adnexal vessels bilaterally which can be seen in the setting of pelvic congestion syndrome in the appropriate clinical setting. 2. A 0.7 cm intramural right body myoma not significant changed from prior. 3. Homogeneously myometrial echotexture which can be seen in the setting of adenomyosis, better characterized on prior MR. Assessment & Plan Assessment & Plan (1) Encounter to discuss test results: Code(s): Z71.2 - Person consulting for explanation of examination or test findings Plan: Discussed: US findings of: 1. Dilated adnexal vessels bilaterally which can be seen in the setting of pelvic congestion syndrome in the appropriate clinical setting. 2. A 0.7 cm intramural right body myoma not significant changed from prior. 3. Homogeneously myometrial echotexture which can be seen in the setting of adenomyosis, better characterized on prior MR. All of her questions and concerns were addressed to the best of my ability and shared decision making. She is agreeable to plan of care. (2) Uterine fibroid: Code(s): D25.9 - Leiomyoma of uterus, unspecified Plan: Leiomyoma: common pelvic neoplasm. Differential diagnosis-may include leiomyosarcoma which is a rare uterine sarcoma 3-7/100,000, difficult to distinguish from fibroids on ultrasound from uterine sarcoma's. Unlikely any single test will have a highly positive predictive value. Hysterectomy is not recommended for sole purpose of excluding malignant neoplasm. Report any AUB, pelvic pressure, bloating, or pain. She declines MRI and BC for treatment; prefers US. Expectant management of US; follow up in 6 months in person, then yearly for stability. Orders: Orders US pelvic and transvaginal 6 Months D25.9 - Leiomyoma of uterus, unspecified, N94.89 - Other specified conditions associated with female genital organs and menstrual cycle Coding Level of Care Code Est Pt Level 3 (11220) Diagnoses Encounter to discuss test results Z71.2 Uterine fibroid D25.9
[2022-12-07 11:26] VITALS: BP 94/56; BMI 18.7
== END 2022-12-07 14:39 | disposition home or self-care (01) ==
PROVIDERS: Visit Provider Advanced Practice Midwife
DX: Z71.2 Person consulting for explanation of examination or test findings (principal); D25.9 Leiomyoma of uterus, unspecified
CPT/HCPCS: 99213

== ENCOUNTER → 2022-12-07 11:23 | Outpatient (BNVA) | payer BC, SELFPAY | PROVIDERS: Visit Provider Advanced Practice Midwife ==

== ENCOUNTER 2023-05-31 10:47 | Outpatient (REF) | payer BC, SELFPAY ==
--- NOTE | ~2023-05-31 | US_ITS ---
EXAM: Pelvic Ultrasound CLINICAL INDICATION: Fibroid COMPARISON: Pelvic ultrasound 11/25/2022 TECHNIQUE: The pelvis was evaluated using transabdominal and transvaginal imaging. FINDINGS: The uterus measures 7.4 x 4.1 x 4.1 cm in longitudinal by AP by transverse dimension. Uterus demonstrates an overall heterogeneous echotexture. There is a stable 7 mm fibroid. The endometrial stripe is not thickened and measures 0.3 cm. There is a small amount of fluid within the cervix and adjacent to the scar. The left ovary measures approximately 2.0 x 1.9 x 1.4 cm and is normal. The right ovary measures approximately 1.4 x 1.5 x 1.3 cm and is also normal. Prominent vasculature noted within the right and left adnexa once again. Small amount of free pelvic fluid. US/US pelvic and transvaginal IMPRESSION: 1. Stable 7 mm uterine fibroid. 2. Prominent vasculature of the right and left adnexa. This is a nonspecific finding but can be seen in the setting of pelvic congestion syndrome. 3. Small amount of fluid within the cervix and adjacent to the scar.
== END 2023-05-31 10:48 | disposition home or self-care (01) ==
LOC: HO.US 10:47
PROVIDERS: Visit Provider Advanced Practice Midwife
DX: D25.9 Leiomyoma of uterus, unspecified (principal); N94.89 Other specified conditions associated with female genital organs and menstrual cycle
CPT/HCPCS: 76830; 76856

== ENCOUNTER 2023-06-13 12:43 | Outpatient (AMB) | payer BC, SELFPAY ==
--- NOTE | 2023-06-13 12:47 | MHC.OFFVIS ---
Intake Vital Signs 06/13/23 12:48 Height 5 ft 2 in Weight 103 lb BMI 18.8 BP 114/68 Intake Visit Reasons: pelvic pain Admitting Coordinator: Admitting Coordinator Present (Bibiana) Allergies No Known Allergies [No Known Allergies*] Allergy (Verified 06/13/23 12:48) Is last menstrual period known: Yes Last menstrual period: 05/23/23 HPI HPI Comments History of Present Illness Details Patient is here for a follow up ultrasound. She had a history of pelvic pain midline radiating throughout the lower abdomen, she reports increased discomfort which resolved with a warm shower. She does not have any pelvic pain today, denies any GI or urinary symptoms. Urine dip is negative in test is negative. History of bilateral tubal ligation. [facility] Medical History (Updated 12/07/22 @ 12:02 by Celia Phelan) Pelvic congestion syndrome Uterine fibroid Pelvic pain Surgical History Hx of section H/O tubal ligation Social History Alcohol intake: never Patient Tobacco Use Status: Never used Tobacco Female Reproductive History Menstrual Age of Menarche: 12 Date of last menstrual period: 05/23/23 Review of Systems Const All systems reviewed & are unremarkable except as noted in HPI and below Physical Exam Vital Signs: Last Vital Signs BP 114/68 06/13/23 12:48 BMI result Body Mass Index 18.8 Const General: cooperative, healthy appearing and no acute distress Orientation/consciousness: patient oriented x3 GI Inspection: Yes normal to inspection and Yes scar Palpation (GI): Soft to palpation and Other GI palpation findings present (Nontender) Rectal Exam - Female: visual inspection normal General: Yes bladder normal to palpation External Female Exam: normal appearance of the urethra Speculum Exam - Vagina: normal appearance of the vagina, normal palpation and normal vaginal discharge Speculum Exam - Cervix: normal appearance of the cervix and normal palpation Bimanual exam- vagina & uterus: normal bimanual exam, normal palpation, uterine size normal, bladder normal to palpation, normal palpation, uterine shape normal, non-tender and Uterine tenderness (slightly tender) Bimanual Exam- Adnexa, other: normal adnexae Neuro General: patient oriented x3 Results AMB Urinalysis, Automated UA Leukoctes 0 Tuan/uL Last Edit by ROME Rivera on 06/13/23 12:59 UA Nitrite Negative Last Edit by ROME Rivera on 06/13/23 12:59 UA Urobilinogen 0 mg/dL Last Edit by ROME Rivera on 06/13/23 12:59 UA Protein 0 mg/dL Last Edit by ROME Rivera on 06/13/23 12:59 UA pH 6.0 Last Edit by ROME Rivera on 06/13/23 12:59 UA Blood 0 Danielito/uL Last Edit by ROME Rivera on 06/13/23 12:59 UA Specific [place] 1.020 Last Edit by ROME Rivera on 06/13/23 12:59 UA Ketone Negative Last Edit by ROME Rivera on 06/13/23 12:59 UA Bilirubin 0 mg/dL Last Edit by ROME Rivera on 06/13/23 12:59 UA Glucose 0 mg/dL Last Edit by ROME Rivera on 06/13/23 12:59 AMB Test Urine AMB Test Urine Negative Last Edit by ROME Rivera on 06/13/23 13:19 Results Reviewed Results Reviewed: Laboratory Last Values Urine pH (Auto) 6.0 06/13/23 12:58 Specific [place] (Auto) 1.020 06/13/23 12:58 Urine Protein (Auto) 0 mg/dL 06/13/23 12:58 Glucose (UA)(Auto) 0 mg/dL 06/13/23 12:58 Urine Ketones (Auto) Negative 06/13/23 12:58 Urine Blood (Auto) 0 Danielito/uL 06/13/23 12:58 Urine Nitrite (Auto) Negative 06/13/23 12:58 Urine Bilirubin (Auto) 0 mg/dL 06/13/23 12:58 Urine Urobilinogen (Auto) 0 mg/dL 06/13/23 12:58 Leukocyte Esterase (Auto) 0 Tuan/uL 06/13/23 12:[address] [address] Ultrasound Report Signed Patient: Arlyn Chacon V MR#: [id number] : 1985 Acct:[id number] Age/Sex: 37 / F ADM Date: 05/31/23 Loc: HO.US Attending Dr: Mariaelena Parker CNM Ordering Physician: Mariaelena Parker CNM Date of Service: 05/31/23 Procedure(s): US pelvic and transvaginal Accession Number(s): [id number] cc: Mariaelena Parker CNM~ EXAM: Pelvic Ultrasound CLINICAL INDICATION: Fibroid COMPARISON: Pelvic ultrasound 11/25/2022 TECHNIQUE: The pelvis was evaluated using transabdominal and transvaginal imaging. FINDINGS: The uterus measures 7.4 x 4.1 x 4.1 cm in longitudinal by AP by transverse dimension. Uterus demonstrates an overall heterogeneous echotexture. There is a stable 7 mm fibroid. The endometrial stripe is not thickened and measures 0.3 cm. There is a small amount of fluid within the cervix and adjacent to the scar. The left ovary measures approximately 2.0 x 1.9 x 1.4 cm and is normal. The right ovary measures approximately 1.4 x 1.5 x 1.3 cm and is also normal. Prominent vasculature noted within the right and left adnexa once again. Small amount of free pelvic fluid. US/US pelvic and transvaginal IMPRESSION: 1. Stable 7 mm uterine fibroid. 2. Prominent vasculature of the right and left adnexa. This is a nonspecific finding but can be seen in the setting of pelvic congestion syndrome. 3. Small amount of fluid within the cervix and adjacent to the scar. Dictated By: Wisam Cobos MD Signed By: <Electronically signed by Wisam Cobos MD in OV> 06/02/23 0944 DD/ 1110 TD/TT: [employer] Field Examiner: PD Assessment & Plan Assessment & Plan (1) Uterine fibroid: Code(s): D25.9 - Leiomyoma of uterus, unspecified (2) Encounter to discuss test results: Code(s): Z71.2 - Person consulting for explanation of examination or test findings Plan Discussed: Ultrasound findings stable 7 mm fibroid, pelvic congestion syndrome features. Discuss both findings and provided literature from up-to-date on topics to review for treatment options. Advised to call if pain returns for his sooner evaluation and to keep her follow up in October. BV and GC and chlamydia cultures today await cultures for plan of care. All of her questions and concerns were addressed to the best of my ability and shared decision making. She is agreeable to the plan of care. This note is constructed using voice recognition software. While every effort has been made to ensure accuracy, purification supervisor errors may have been included. Orders: Orders Bacterial Vaginosis Panel Today R10.2 - Pelvic and perineal pain AMB Urinalysis Automated Today R10.2 - Pelvic and perineal pain AMB HCG Urine Test Today R10.2 - Pelvic and perineal pain CT NG by PCR Today R10.2 - Pelvic and perineal pain Coding Level of Care Code Est Pt Level 3 (48626) Diagnoses Uterine fibroid D25.9 Encounter to discuss test results Z71.2
[2023-06-13 12:48] VITALS: BP 114/68; BMI 18.8
== END 2023-06-13 14:32 | disposition home or self-care (01) ==
LOC: HO.HWS 12:43
PROVIDERS: Visit Provider Advanced Practice Midwife
DX: D25.9 Leiomyoma of uterus, unspecified (principal); Z71.2 Person consulting for explanation of examination or test findings; R10.2 Pelvic and perineal pain
CPT/HCPCS: 99213

== ENCOUNTER 2023-06-13 12:43 | Outpatient (REF) | payer BC, SELFPAY ==
[2023-06-14 02:46] LABS: CT PCR NOT DETECTED (Not Detect.); NG PCR NOT DETECTED (Not Detect.)
[2023-06-14 13:08] LABS: BV Int Neg Control Negative (Negative); BV Int Pos Control Positive (Positive)
== END 2023-06-13 12:44 | disposition home or self-care (01) ==
LOC: HO.LAB 12:43
PROVIDERS: Visit Provider Advanced Practice Midwife
DX: R10.2 Pelvic and perineal pain (principal); D25.9 Leiomyoma of uterus, unspecified; Z71.2 Person consulting for explanation of examination or test findings
CPT/HCPCS: 0353U; 81003; 81025; 87480; 87510; 87660

== ENCOUNTER 2023-06-13 13:18 | Outpatient (REF) | payer BC, SELFPAY | END 2023-06-13 13:19 | disposition home or self-care (01) | LOC: HO.LNP 13:18 | PROVIDERS: Visit Provider Advanced Practice Midwife | DX: Z13.89 Encounter for screening for other disorder (principal) ==

== ENCOUNTER 2023-08-15 15:53 | Emergency (ER) | payer BC, SELFPAY ==
--- NOTE | 2023-08-15 15:54 | ECG_ITS ---
Test Reason : CP Blood Pressure : / mmHG Vent. Rate : 074 BPM Atrial Rate : 074 BPM P-R Int : 126 ms QRS Dur : 088 ms QT Int : 386 ms P-R-T Axes : 063 074 035 degrees QTc Int : 428 ms Normal sinus rhythm Normal ECG No previous ECGs available Referred By: Generic ED Physician Electronically Signed By:NEVAEH LOFTON MD
[2023-08-15 16:17] VITALS: BP 118/71; PULSE 73; RESP 16; TEMP 36.7; O2SAT 99; BMI 19.2
--- NOTE | 2023-08-15 16:18 | ED_ITS ---
HPI - General Adult General Chief complaint: Syncope Stated complaint: chest pain, dizzy Time Seen by Provider: 08/16/23 01:31 Source: patient, RN notes reviewed and old records reviewed Mode of arrival: ambulatory Limitations: no limitations History of Present Illness ED Provider: Elayne HPI narrative: 37-year-old female presents for evaluation of chest pain and shoulder pain. Patient reports that earlier today around 11:00 a.m. on 08/15/2023 she was standing in the kitchen where she had a brief episode where she felt as though her vision was going dark and ?I was going to pass out. ? She reports this lasted only a few seconds She reports having had some pain in both shoulders that radiates to back She took ibuprofen with improvement in her symptoms Currently she has no chest pain. She denies any fevers, chills, cough, shortness of breath Denies any abdominal pain nausea vomiting Related Data Home Medications ?Medication ?Instructions ?Recorded ?Confirmed No Known Home Meds 10/06/22 10/06/22 Allergies Allergy/AdvReac Type Severity Reaction Status Date / Time No Known Allergies Allergy Verified 08/15/23 16:19 [No Known Allergies*] Review of Systems 2 Constitutional: Constitutional: Denies body ache(s), Denies chills and Denies fever(s) Eyes: Eyes: Denies blurry vision ENT: Denies vertigo and Reports dizziness Cardiovascular: Cardiovascular: Reports chest pain, Denies syncope, Reports lightheadedness and Denies dyspnea Respiratory: Respiratory: Denies cough and Denies dyspnea Gastrointestinal: Gastrointestinal: Denies abdominal pain, Denies nausea and Denies vomiting Genitourinary: Genitourinary: Denies dysuria Musculoskeletal: Musculoskeletal: Denies back pain, Reports arthralgias, Denies joint swelling and Denies limited range of motion Integumentary/Breasts: Skin/Breast: Denies rash Neurologic: Denies vertigo, Reports dizziness and Denies syncope [facility] Past Medical History Medical History (Updated 08/16/23 @ 01:55 by Dario Holly) Pelvic congestion syndrome Uterine fibroid Pelvic pain Surgical History Hx of section H/O tubal ligation Social History Social History (Reviewed 12/07/22 @ 12:01 by ADELFO Izquierdo Alcohol intake: never Patient Tobacco Use Status: Never used Tobacco Smoked in Last 30 Days: No Use of substances other than those prescribed or required for medical reasons: No Advance Directives: No Advance Directives Information Provided: Yes Do you have a plan to hurt others: No Plan Patient : No Physical Exam ED Vital Signs: Vital Signs - 24 hr 08/15/23 16:17 08/15/23 21:31 08/16/23 00:01 Temperature 98.0 F 98.2 F 97.7 F Pulse Rate 73 72 62 Respiratory Rate 16 17 16 Blood Pressure 118/71 112/71 123/74 Pulse Oximetry 99 100 100 Oxygen Delivery Method Room Air Room Air Room Air BMI result Body Mass Index 19.2 Const General: healthy appearing, comfortable, no acute distress, alert and awake Nutritional Appearance: well nourished Orientation/consciousness: patient oriented x3 HENMT Head: Yes normocephalic and Yes atraumatic Eyes Eyelids: Yes eyelids normal Conjunctivae: conjunctivae normal Sclerae: sclerae normal Corneas: corneas normal Pupils: Equal, round and reactive pupils present EOM: EOMs intact bilaterally Resp Effort & Inspection: normal respiratory effort, able to speak in complete sentences, no audible wheezes and not labored Auscultation: clear to auscultation bilaterally Cardio Rate: regular rate Rhythm: regular rhythm GI Inspection: No distended Palpation (GI): Soft to palpation, not firm, nontender, no guarding and not rigid Skin General skin exam: elasticity normal Neuro General: patient oriented x3 Cranial nerves: Yes Equal, round and reactive pupils present and Yes Bilaterally intact EOM present Cognition (Neuro): normal cognition Extrem Other: Moving all extremities well without any obvious deformities Course Course Course Narrative: This is a Rapid Medical Examination (RME) performed by Valentín Mcgee PA-C in triage. Full HPI, ROS, assessment and treatment plan per primary provider in the Main ED. 37 yo female here for eval of near syncopal episode occurring around 0700 this morning. Reports feeling like she was going to faint after becoming dizzy. Now reports diffuse chest pain radiating into her shoulders. 7/10 pain. RRR. lungs cta b/l. Plan: labs, ekg, cxr ordered Medications Administered Discontinued Medications Generic Name Dose Route Start Last Admin Trade Name Freq PRN Reason Stop Dose Admin Ibuprofen 400 mg 08/15/23 23:45 08/15/23 23:47 Ibuprofen 400 Mg Tablet PO 08/15/23 23:46 400 mg ONCE ONE Administration Medical Decision Making Medical Decision Making [facility] Narrative: 37-year-old female presents for evaluation of chest pain and near syncope. She is currently asymptomatic. Her EKG is nonischemic. Her labs were drawn 5 hours after the onset of her chest pain. The negative troponin nonischemic EKG rules her out for ACS. She is PERC negative her hematology is significant for a mild leukopenia of unclear etiology, a microcytic anemia that is likely related to heavy menstrual cycle. There is no left shift. Normal platelet count. Chemistries without any electrolyte abnormalities. Troponin undetectable. Renal function within normal limits. Patient's vital signs have all been within normal limits, she has not hypertensive less likely to be major vasculature etiology of her pain. Her pain improved with ibuprofen, likely musculoskeletal in origin. Again she is currently asymptomatic, no chest pain, nonischemic EKG. Lungs are clear to auscultation, she has not hypoxic or complaining of shortness of breath. Therefore pneumonia is less likely. Chest x-ray deferred at this time. She is stable for discharge to follow-up outpatient Differential Diagnosis Differential Diagnoses: The differential diagnosis associated with the presentation includes Chest pain Near-syncope ACS less likely PE less likely Costochondritis Chest wall pain Arthritis Admission/Observation Consideration of admission/observation: Escalation of care including admission/observation considered Patient ruled out for ACS and does not require admission Lab Data [facility] Lab Attestation statement: I reviewed the patient's lab results. See medical decision making above 08/15/23 16:40 08/15/23 16:40 Labs: Lab Results 08/15/23 Range/Units 16:40 WBC 4.6 L (4.8-10.8) X10*3/uL RBC 4.09 L (4.20-5.50) X10*6/uL Hgb 10.1 L (12.0-16.0) g/dl Hct 31.7 L (37.0-47.0) % MCV 77.5 L (80.0-98.0) fL MCH 24.7 L (27.0-33.0) pg MCHC 31.9 (31.0-35.0) g/dl RDW 15.9 (11.0-16.0) % Plt Count 219 (160-400) X10*3/uL MPV 9.0 L (9.4-12.3) fL Immature Gran % (Auto) 0.2 (0.0-0.4) % Neut % (Auto) 56.1 (45-73) % Lymph % (Auto) 34.9 (20-40) % Bond % (Auto) 7.5 (2-11) % Eos % (Auto) 1.1 (0-4) % Baso % (Auto) 0.2 (0-2) % Lymph # (Auto) 1.6 (1.2-4.9) X10*3/uL Bond # (Auto) 0.3 (0.1-1.2) X10*3/uL Eos # (Auto) 0.1 (0.0-0.4) X10*3/uL Baso # (Auto) 0.0 (0.0-0.2) X10*3/uL Abs Immat Gran (auto) 0.01 (0.00-0.03) X10*3/uL Absolute Neuts (auto) 2.6 (2.0-8.3) x10*3/uL Absolute Nucleated RBC 0.000 (0.0-0.012) X10*3/uL Nucleated RBC % (auto) 0.0 (0.0-0.2) /100WBC PT 12.3 (11.1-13.3) SEC INR 1.0 (0.9-1.1) Sodium 139 (135-145) mmol/L Potassium 3.9 (3.3-5.1) mmol/L Chloride 105 (96-108) mmol/L Carbon Dioxide 25 (22-29) mmol/L Anion Gap 13 (12-20) BUN 10 (9-16) mg/dL Creatinine 0.70 (0.5-1.4) mg/dL Estim Creat Clear Calc 82.7 Estimated GFR > 60 Random Glucose 100 (60-115) mg/dL Calcium 8.8 (8.4-10.2) mg/dL Magnesium 1.9 (1.6-2.6) mg/dL Total Bilirubin 0.3 (0.0-1.0) mg/dL AST 17 (5-31) U/L ALT 11 (0-31) U/L Alkaline Phosphatase 52 (39-117) U/L Troponin I High Sens < 2.7 (<3.5-17.0) ng/L Total Protein 7.1 (6.5-8.0) g/dL Albumin 4.2 (3.5-5.0) g/dL Lipase 41 (8-78) U/L Independent Interpretation I performed an independent interpretation of an: EKG (Normal sinus rhythm with a rate of [address] segment changes) Discharge Plan Discharge Clinical Impression: Chest pain, Near syncope Patient Disposition: Home, Self-Care Instructions: Near Syncope (ED), Chest Pain (ED) Additional Instructions: Your workup in the ER today was reassuring. This includes your blood work, EKG Drink lots of fluids. Use ibuprofen for further pain. You may follow-up with your primary doctor and/or Cardiology for any further chest pain Prescriptions: No Action No Known Home Meds Referrals: Hieu Calabrese MD [Physician] - (chest pain, near syncope) Print Language: Micronesian
[2023-08-15 16:46] LABS: MANUAL DIFF FLAG NO
[2023-08-15 16:50] LABS: Basophils Percent Auto 0.2 % (0-2); Eosinophils Absolute Auto 0.1 X10*3/uL (0.0-0.4); Eosinophils Percent Auto 1.1 % (0-4); Hematocrit 31.7 % (37.0-47.0); Hemoglobin 10.1 g/dl (12.0-16.0); Imm Gran Abs Auto 0.01 X10*3/uL (0.00-0.03); Imm Gran Pct Auto 0.2 % (0.0-0.4); Lymphocytes Absolute Auto 1.6 X10*3/uL (1.2-4.9); Lymphocytes Percent Auto 34.9 % (20-40); Mean Corpuscular HGB Conc 31.9 g/dl (31.0-35.0); Mean Corpuscular Hemoglobin 24.7 pg (27.0-33.0); Mean Corpuscular Volume 77.5 fL (80.0-98.0); Monocytes Absolute Auto 0.3 X10*3/uL (0.1-1.2); Monocytes Percent Auto 7.5 % (2-11); Neutrophils Absolute Auto 2.6 x10*3/uL (2.0-8.3); Neutrophils Percent Auto 56.1 % (45-73); Platelet Count 219 X10*3/uL (160-400); Red Blood Count 4.09 X10*6/uL (4.20-5.50); Red Cell Distribution Width 15.9 % (11.0-16.0); White Blood Count 4.6 X10*3/uL (4.8-10.8)
[2023-08-15 17:01] LABS: Prothrombin Time 12.3 SEC (11.1-13.3)
[2023-08-15 17:08] LABS: Alanine Aminotransferase 11 U/L (0-31); Albumin Level 4.2 g/dL (3.5-5.0); Alkaline Phosphatase 52 U/L (39-117); Anion Gap 13 (12-20); Aspartate Amino Transferase 17 U/L (5-31); Bilirubin Total 0.3 mg/dL (0.0-1.0); Blood Urea Nitrogen 10 mg/dL (9-16); Calcium 8.8 mg/dL (8.4-10.2); Carbon Dioxide 25 mmol/L (22-29); Chloride 105 mmol/L (96-108); Creatinine Clr Calc Pharmacy 82.7; Estimated Glomerular Filt Rate > 60; Glucose Random 100 mg/dL (60-115); Lipase 41 U/L (8-78); Magnesium 1.9 mg/dL (1.6-2.6); Potassium 3.9 mmol/L (3.3-5.1); Sodium 139 mmol/L (135-145); Total Protein 7.1 g/dL (6.5-8.0)
[2023-08-15 17:24] LABS: Troponin-I High Sensitivity < 2.7 ng/L (<3.5-17.0)
[2023-08-15 21:31] VITALS: BP 112/71; PULSE 72; RESP 17; TEMP 36.8; O2SAT 100
[2023-08-15] MEDS: Ibuprofen 400 MG TABLET PO (23:47)
[2023-08-16 00:01] VITALS: BP 123/74; PULSE 62; RESP 16; TEMP 36.5; O2SAT 100
[2023-08-16 01:58] LABS: HCG Quantitative < 2 mIU/mL
[2023-08-16 02:00] VITALS: BP 104/67; PULSE 61; RESP 19; TEMP 36.7; O2SAT 99
[2023-08-16 02:45] VITALS: BP 104/67; PULSE 61; RESP 19; TEMP 36.7; O2SAT 99
== END 2023-08-16 02:25 | disposition home or self-care (01) ==
PROVIDERS: Physician Assistant; Physician Assistant Medical; Emergency Provider Internal Medicine
DX: R07.9 Chest pain, unspecified (principal); R55 Syncope and collapse; D72.819 Decreased white blood cell count, unspecified; D50.9 Iron deficiency anemia, unspecified; N94.89 Other specified conditions associated with female genital organs and menstrual cycle
CPT/HCPCS: 36415; 80053; 83690; 83735; 84484; 84702; 85025; 85610; 93005; 99283; 99285

== ENCOUNTER → 2023-08-15 15:54 | Outpatient (BNV) | payer BC, SELFPAY | PROVIDERS: Emergency Provider Internal Medicine; Visit Provider Internal Medicine Cardiovascular Disease | DX: R07.9 Chest pain, unspecified (principal) | CPT/HCPCS: 93010 ==

== ENCOUNTER 2023-08-24 22:10 | Emergency (ER) | payer BC, SELFPAY ==
--- NOTE | 2023-08-24 | ECG_ITS ---
Test Reason : CHEST PAIN Blood Pressure : / mmHG Vent. Rate : 097 BPM Atrial Rate : 097 BPM P-R Int : 122 ms QRS Dur : 090 ms QT Int : 352 ms P-R-T Axes : 066 073 -18 degrees QTc Int : 447 ms Normal sinus rhythm Nonspecific T wave abnormality Abnormal ECG When compared with ECG of 15-AUG-2023 15:56, Inverted T waves have replaced nonspecific T wave abnormality in Inferior leads Nonspecific T wave abnormality now evident in Lateral leads Referred By: Generic ED Physician Electronically Signed By:DANIELA SNIDER
--- NOTE | ~2023-08-24 | XR_ITS ---
EXAMINATION: XR CHEST CLINICAL INFORMATION: Chest pain. COMPARISON: 05/04/2017. TECHNIQUE: Frontal view of the chest was obtained. FINDINGS: No significant abnormality is noted involving the heart, lungs, mediastinum, bony thorax or soft tissues. XR/XR chest 1V IMPRESSION: Unremarkable examination.
[2023-08-24 22:21] VITALS: PULSE 119; RESP 28; TEMP 37; O2SAT 97; BMI 18.6
[2023-08-25 00:27] VITALS: BP 108/75; PULSE 68; RESP 16; TEMP 36.8; O2SAT 100
--- NOTE | 2023-08-25 01:36 | ED_ITS ---
HPI - Chest Pain General Chief Complaint: Chest Pain Stated Complaint: chest pain Time Seen by Provider: 08/25/23 01:51 Source: patient Mode of arrival: ambulatory Limitations: no limitations History of Present Illness ED Provider: Dr. Mar Wallace HPI narrative: Patient comes to the emergency room complaining of 1 week of chest burning sensation radiating towards her arms, diffuse itching, flushing sensation throughout her body, back pain. Patient was seen here 1 week ago, workup was unremarkable Related Data Home Medications ?Medication ?Instructions ?Recorded ?Confirmed No Known Home Meds 10/06/22 10/06/22 Allergies Allergy/AdvReac Type Severity Reaction Status Date / Time No Known Allergies Allergy Verified 08/24/23 22:22 [No Known Allergies*] Review of Systems 2 Review of Systems: Constitutional : No Weight loss, No Fever, No Chills, No Night Sweats, No Fatigue, No Malaise, complaining of diffuse flushing sensation ENT/Mouth : No Hearing loss, No Ear Pain, No Nasal Congestion, No Sinus Pain, No Hoarseness, No sore throat, No Rhinorrhea, No Swallowing Difficulty Eyes: No Eye Pain, No Swelling, No Redness, No Foreign Body, No Discharge, No Vision Changes Cardiovascular : Complaining of 1 week of bilateral chest pain radiating towards both arms, No SOB, No Dyspnea on Exertion, No Orthopnea, No Edema, No Palpitations Respiratory : No Cough, No Sputum, No Wheezing, No Smoke Exposure, No Dyspnea Gastrointestinal : No Nausea, No Vomiting, No Diarrhea, No Constipation, No abdominal Pain, No Hematochezia, No Melena Genitourinary : no irregular bleeding, No Dysuria, No Urinary Frequency, No Hematuria, No Urinary Incontinence, No Urgency, No Flank Pain, No Urinary Flow Changes, No Hesitancy Musculoskeletal : No joint pain, No Myalgias, No Joint Swelling Skin : No Skin Lesions, No rash Neuro : No Weakness, No Numbness, No Paresthesias, No Loss of Consciousness, No Dizziness, No Headache Psych : No Anxiety/Panic, No Depression, No SI/HI/AH/VH, No Social Issues, Heme/Lymph: No Bruising, No Bleeding,No Lymphadenopathy Endocrine : No Polyuria, No Polydipsia, No Temperature Intolerance PMFSH Past Medical History Medical History Pelvic congestion syndrome Uterine fibroid Pelvic pain Surgical History Hx of section H/O tubal ligation Social History Social History Alcohol intake: never Patient Tobacco Use Status: Never used Tobacco Physical Exam 2 Vital Signs: Vital Signs: Last Vital Signs Temp 98.2 F 08/25/23 03:37 Pulse 68 08/25/23 03:37 Resp 18 08/25/23 03:37 BP 110/72 08/25/23 03:37 Pulse Ox 100 08/25/23 03:37 O2 Del Method Room Air 08/25/23 03:37 BMI result Body Mass Index 18.6 Const: Other: Appearance: Alert. Oriented X3. No acute distress. Eyes: Pupils equal, round and reactive to light. ENT: Pharynx normal. Neck: Normal inspection. Neck supple. No lymph nodes noted. No crepitus CVS: Normal heart rate and rhythm. Pulses normal. Normal S1 and S2 Respiratory: No respiratory distress. Breath sounds normal. No Wheezing. No rales Abdomen: Soft and nontender. No rigidity. No distention. Skin: Skin warm and dry. Normal skin color. Normal skin turgor. Extremities: No lower extremity edema. No Lacerations. No Rash Neuro: Oriented X 3. No motor deficit. No sensory deficit. Moving all extremities. No slurred speech. CN 2 through 12 grossly intact Psych: calm, cooperative, seems anxious, a bit tearful Course Course Course Narrative: -all of patient's labs and imaging pending -patient requesting to be tested for ?everything . I asked the patient if she has any specific test in mind for any specific concern, patient answers ?I do not know ? Medical Decision Making Medical Decision Making MDM Narrative: -my interpretation of EKG, normal sinus rhythm, heart rate 97, no ST segment depression or elevation, nonspecific T-wave inversion in lead 3, QTC 447 -my interpretation of labs, hematology shows a hemoglobin of 10.5, same as previous visit, D-dimer negative, chemistry normal with troponin negative -interpretation of chest x-ray: No acute abnormality -heart score 0 -patient's symptoms are unlikely to be secondary to a cardiac or pulmonary etiology. Most likely musculoskeletal versus anxiety. Differential Diagnosis Differential Diagnoses: The differential diagnosis associated with the presentation includes (Musculoskeletal pain, anxiety, pleurisy) Lab Data MDM Lab Attestation statement: I reviewed the patient's lab results. 08/25/23 01:59 08/25/23 01:59 Labs: Lab Results 08/25/23 Range/Units 01:59 WBC 5.0 (4.8-10.8) X10*3/uL RBC 4.26 (4.20-5.50) X10*6/uL Hgb 10.5 L (12.0-16.0) g/dl Hct 32.5 L (37.0-47.0) % MCV 76.3 L (80.0-98.0) fL MCH 24.6 L (27.0-33.0) pg MCHC 32.3 (31.0-35.0) g/dl RDW 16.8 H (11.0-16.0) % Plt Count 222 (160-400) X10*3/uL MPV 9.0 L (9.4-12.3) fL Immature Gran % (Auto) 0.2 (0.0-0.4) % Neut % (Auto) 51.5 (45-73) % Lymph % (Auto) 36.0 (20-40) % [place] % (Auto) 10.7 (2-11) % Eos % (Auto) 1.2 (0-4) % Baso % (Auto) 0.4 (0-2) % Lymph # (Auto) 1.8 (1.2-4.9) X10*3/uL [place] # (Auto) 0.5 (0.1-1.2) X10*3/uL Eos # (Auto) 0.1 (0.0-0.4) X10*3/uL Baso # (Auto) 0.0 (0.0-0.2) X10*3/uL Abs Immat Gran (auto) 0.01 (0.00-0.03) X10*3/uL Absolute Neuts (auto) 2.6 (2.0-8.3) x10*3/uL Absolute Nucleated RBC 0.000 (0.0-0.012) X10*3/uL Nucleated RBC % (auto) 0.0 (0.0-0.2) /100WBC PT 12.7 (11.1-13.3) SEC INR 1.0 (0.9-1.1) D-Dimer High Sensitivty < 150 NG/ML Sodium 140 (135-145) mmol/L Potassium 3.3 (3.3-5.1) mmol/L Chloride 107 (96-108) mmol/L Carbon Dioxide 28 (22-29) mmol/L Anion Gap 8 L (12-20) BUN 10 (9-16) mg/dL Creatinine 0.63 (0.5-1.4) mg/dL Estim Creat Clear Calc 91.9 Estimated GFR > 60 Random Glucose 105 (60-115) mg/dL Calcium 8.7 (8.4-10.2) mg/dL Troponin I High Sens < 2.7 (<3.5-17.0) ng/L Independent Interpretation I performed an independent interpretation of an: Plain X-Ray Radiology Impression Discussion of test interpretation with radiology: I have reviewed the radiologist's reading. Radiologist Impression: No significant abnormality is noted involving the heart, lungs, mediastinum, bony thorax or soft tissues. XR/XR chest 1V IMPRESSION: Unremarkable examination. Scores Heart Score History: -0- slightly suspicious ECG: -0- normal Age: -0- < or = 45 Risk factory: -0- no risk factors known Troponin: -0- < or = normal limit Score: 0 Risk: 1.7% Discharge Plan Discharge Clinical Impression: Atypical chest pain, Anxiety Patient Disposition: Home, Self-Care Instructions: Chest Pain (ED), Anxiety (ED) Additional Instructions: Please follow-up with your primary care physician tomorrow. If you have any worsening or new symptoms, please return to the emergency room or call 911 Prescriptions: No Action No Known Home Meds Interventions: ED Discharge Assessment Last Done: 08/25/23 03:37 Discharge Date/Time: 08/25/23 03:38 Print Language: Vietnamese
[2023-08-25 02:03] LABS: MANUAL DIFF FLAG NO
[2023-08-25 02:04] LABS: Basophils Percent Auto 0.4 % (0-2); Eosinophils Absolute Auto 0.1 X10*3/uL (0.0-0.4); Eosinophils Percent Auto 1.2 % (0-4); Hematocrit 32.5 % (37.0-47.0); Hemoglobin 10.5 g/dl (12.0-16.0); Imm Gran Abs Auto 0.01 X10*3/uL (0.00-0.03); Imm Gran Pct Auto 0.2 % (0.0-0.4); Lymphocytes Absolute Auto 1.8 X10*3/uL (1.2-4.9); Mean Corpuscular HGB Conc 32.3 g/dl (31.0-35.0); Mean Corpuscular Hemoglobin 24.6 pg (27.0-33.0); Mean Corpuscular Volume 76.3 fL (80.0-98.0); Monocytes Absolute Auto 0.5 X10*3/uL (0.1-1.2); Monocytes Percent Auto 10.7 % (2-11); Neutrophils Absolute Auto 2.6 x10*3/uL (2.0-8.3); Neutrophils Percent Auto 51.5 % (45-73); Platelet Count 222 X10*3/uL (160-400); Red Blood Count 4.26 X10*6/uL (4.20-5.50); Red Cell Distribution Width 16.8 % (11.0-16.0)
[2023-08-25 02:09] LABS: Prothrombin Time 12.7 SEC (11.1-13.3)
[2023-08-25 02:12] LABS: D Dimer High Sensitivity < 150 NG/ML
[2023-08-25 02:28] LABS: Anion Gap 8 (12-20); Blood Urea Nitrogen 10 mg/dL (9-16); Calcium 8.7 mg/dL (8.4-10.2); Carbon Dioxide 28 mmol/L (22-29); Chloride 107 mmol/L (96-108); Creatinine Clr Calc Pharmacy 91.9; Estimated Glomerular Filt Rate > 60; Glucose Random 105 mg/dL (60-115); Potassium 3.3 mmol/L (3.3-5.1); Sodium 140 mmol/L (135-145)
[2023-08-25 02:37] LABS: Troponin-I High Sensitivity < 2.7 ng/L (<3.5-17.0)
[2023-08-25 03:30] VITALS: BP 110/72; PULSE 68; RESP 18; TEMP 36.8; O2SAT 100
[2023-08-25 03:37] VITALS: BP 110/72; PULSE 68; RESP 18; TEMP 36.8; O2SAT 100
== END 2023-08-25 03:38 | disposition home or self-care (01) ==
PROVIDERS: Emergency Provider Emergency Medicine
DX: R07.89 Other chest pain (principal); Z79.899 Other long term (current) drug therapy
CPT/HCPCS: 36415; 71045; 80048; 84484; 85025; 85379; 85610; 93005; 99283; 99285

== ENCOUNTER → 2023-08-24 22:12 | Outpatient (BNV) | payer BC, SELFPAY | PROVIDERS: Emergency Provider Emergency Medicine; Visit Provider Internal Medicine | DX: R94.31 Abnormal electrocardiogram [ECG] [EKG] (principal) | CPT/HCPCS: 93010 ==

== ENCOUNTER 2024-01-10 08:22 | Outpatient (AMB) | payer BC, SELFPAY ==
[2024-01-10 08:27] VITALS: BP 98/62; PULSE 68; O2SAT 97; BMI 18.8
--- NOTE | 2024-01-10 08:27 | A.OFFPC_ITS ---
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 In review of the notes, patient was seen in [facility] ED 08/25/2023 for 1 week of chest burning sensation in epigastric pain workup was negative and patient was discharged home. Patient was evaluated by [facility] Cardiology 09/01/2023 for the same concern advised to try [id number] omeprazole 20 mg and recommended GI consultation. She regularly follows with [facility] gynecology last seen June 2023 found to have stable 7 mm uterine fibroid and advised to follow up on yearly basis. Today she tells us for the last 3 months she has been having this chest burning sensation that radiates to the shoulders and to the back as well as the epigastric area. The pain is typically exacerbated by eating and she will not have this pain if she avoids food. She has been using [id number] Pepcid chewables which helped very mildly with her symptoms. [facility] Medical History Pelvic congestion syndrome Uterine fibroid Pelvic pain Surgical History Hx of section H/O tubal ligation Social History Housing: Condominium Alcohol intake: never Patient Tobacco Use Status: Never used Tobacco service: No Current occupational status: unemployed Cognitive needs: No Hearing needs: No Vision needs: No Female Reproductive History Menstrual Total pregnancies: 5 Full term: 3 Premature: 1 History of abnormal pap smear: No Questionnaire PHQ-9 Over the last 2 weeks, how often have you been bothered by any of the following problems? 1. Little interest or pleasure in doing things: not at all 2. Feeling down, depressed, or hopeless: not at all 3. Trouble falling or staying asleep, or sleeping too much: not at all 4. Feeling tired or having little energy: not at all 5. Poor appetite or overeating: not at all 6. Feeling bad about yourself - or that you are a failure or have let yourself or your family down: not at all 7. Trouble concentrating on things, such as reading the newspaper or watching television: not at all 8. Moving or speaking so slowly that other people could have noticed. Or the opposite - being so fidgety or restless that you have been moving around a lot more than usual: not at all 9. Thoughts that you would be better off or of hurting yourself in some way: not at all Total score: 0 Depression Screening Interpretation: Negative Depression Screening Done: Yes 53578 - PHQ-9 Billing: Yes Source: Developed by Drs. Kris Mas, Nicolasa Carson, Kadeem Souza and colleagues, with an educational vamsi from [employer]. Thrive Questionnaire Date Thrive assessed: 01/10/24 I am a: Patient What is your living situation today?: I have a place to live, but I am worried about losing it in the future Within the past 12 months, did the food you bought not last and you didn't have the money to get more?: Never true Within the past 12 months, did you worry whether your food would run out before you got money to buy more?: Never true Do you have trouble paying for medicines?: No Do you have trouble getting transportation to medical appointments?: No Do you have trouble paying your heating and electricity bill?: No Do you have trouble taking care of your child, family member or friend?: No Do you have trouble with day-to-day activities such as bathing, preparing meals, shopping, managing finances, etc.?: No Are you currently unemployed and looking for a job?: No Are you interested in more education?: No Please select the resources that you would like help with: None Currently or been in a relationship where the following occur: No concerns reported THRIVE Score: 1 AUDIT C Alcohol Use Questionnaire (AUDIT-C) 1. How often do you have a drink containing alcohol?: Never 3. How often do you have six or more drinks on one occasion?: Never Total Score: 0 KRISTOPHER-7 AMB Questionnaire KRISTOPHER-7 Date KRISTOPHER - 7 assessed: 01/10/24 Feeling nervous, anxious, or on edge: 0 = Not at all Not being able to stop or control worryin = Not at all Worrying too much about different things: 0 = Not at all Trouble relaxin = Not at all Being so restless that it is hard to sit still: 0 = Not at all Becoming easily annoyed or irritable: 0 = Not at all Feeling afraid as if something awful might happen: 0 = Not at all Total KRISTOPHER-7 score (0-4 normal; 5-9 mild; 10-14 moderate; 15-21 severe): 0 Source: Developed by Drs. Kris Mas, Nicolasa Carson, Kadeem Souza and colleagues, with an educational vamsi from [employer]. Review of Systems Const Denies body aches, Denies fatigue, Denies fever(s), Denies frequent falls, Denies headache(s) and Denies weakness Eyes Reports no additional complaints and Denies change in vision ENT Denies dysphagia, Denies dizziness, Denies facial pain, Denies headache(s), Denies nasal congestion and Denies odynophagia Card Denies chest pain, Denies syncope, Denies irregular heart rhythm, Denies leg edema, Denies lightheadedness and Denies dyspnea Resp Denies cough and Denies dyspnea GI Reports abdominal pain (epigastric), Denies constipation, Denies dysphagia, Repo rts dyspepsia, Reports heartburn, Denies diarrhea, Denies nausea, Denies odynophagia and Denies vomiting Denies urinary frequency, Denies dysuria, Denies urinary hesitancy and Denies urinary urgency Musc Details: generalized joint pain Denies back pain and Denies myalgias Skin/Breast Reports system reviewed and no additional complaints, except as documented Neuro Denies dizziness, Denies syncope, Denies frequent falls, Denies headache(s) and Denies weakness Psych Reports no additional complaints Endo Denies fatigue Physical exam (Primary Care) Vital Signs: Last Vital Signs Pulse 68 01/10/24 08:27 BP 98/62 01/10/24 08:27 Pulse Ox 97 01/10/24 08:27 Oxygen Delivery Method Room Air 01/10/24 08:27 BMI result Body Mass Index 18.8 Tobacco/Smoking Status: Tobacco use Status Tobacco use date assessed 01/10/24 01/10/24 08:29 Patient Tobacco Use Status Never used Tobacco 01/10/24 08:46 PHQ-9: PHQ-9 Score PHQ-9: Total score 0 01/10/24 11:43 Depression Screening Interpretation: Negative Thrive Assessment: Date of Thrive Assessment Date Thrive assessed 01/10/24 01/10/24 08:29 Currently or been in a relationship where the following occur: No concerns reported Const General: cooperative, healthy appearing, comfortable and no acute distress Orientation/consciousness: patient oriented x3 HENMT Head: Yes normocephalic Ears: hearing grossly normal bilaterally General nose exam: Normal external nose present Face and sinus: Yes normal facial exam and Yes sinuses nontender Mouth: Normal oral and palatal mucosa present and tongue normal Throat: Yes posterior oropharynx normal Eyes General: appearance normal, both eyes and all related structures Conjunctivae: conjunctivae normal Pupils: Equal, round and reactive pupils present EOM: EOMs intact bilaterally and No Nystagmus present Neck Neck: Yes full ROM and Yes no lymphadenopathy Chest Chest palpation & inspection: normal inspection of the chest Resp Effort & Inspection: normal respiratory effort Auscultation: clear to auscultation bilaterally, no crackles, no rales, no rhonchi and no wheezes Cardio Rate: regular rate Rhythm: regular rhythm Peripheral pulses: radial pulses present and dorsalis pedis present GI Inspection: Yes normal to inspection and No Abdominal wall edema Palpation (GI): Soft to palpation, not firm, Tenderness to palpation present (GI) suprapubicly, no guarding and not rigid Auscultation: normal bowel sounds Rectal Exam - Female: deferred General: Yes no CVA tenderness Back/Spine/Pelvis Back: no CVA tenderness Skin General skin exam: no rashes or lesions noted Neuro General: patient oriented x3 Cranial nerves: Yes Equal, round and reactive pupils present, Yes Midline tongue present, Yes Ability to bilaterally elevate shoulders present and No Nystagmus present Gait exam (Neuro): Normal gait present Extrem General: Yes normal to inspection, Yes full ROM and No edema Psych Speech and movement: Normal speech and movement present Affect: normal affect Attitude: cooperative Insight: Good insight present (Psych) Judgement: Good judgement present (Psych) Coding Level of Care Code New Pt Level 3 (31497) New Pt Prev Care 18-39yr(55601 Diagnoses GERD (gastroesophageal reflux disease) K21.9 Generalized joint pain M25.50 Pelvic pain R10.2 Annual physical exam Z00.00 Generalized abdominal pain R10.84 Assessment & Plan Assessment & Plan (1) GERD (gastroesophageal reflux disease): Code(s): K21.9 - Gastro-esophageal reflux disease without esophagitis Category: Medical Plan: Avoid trigger foods such as citrus, tomato products, soda, caffeine, spicy foods and other foods that may be irritating to your stomach. Avoid laying flat 3-4 hours after eating and elevate the head of the bed 30 degrees to prevent acid from moving into the esophagus. We will start on famotidine 20 mg at bedtime and ordered for upper GI series. Per [facility] cardiology referral was placed for GI evaluation. (2) Generalized joint pain: Code(s): M25.50 - Pain in unspecified joint Category: Medical Plan: Ordered for blood work for further evaluation. (3) Pelvic pain: Comment: US and follow up Code(s): R10.2 - Pelvic and perineal pain Category: Medical Plan: Continue to follow with gynecology and ordered urinalysis. (4) Annual physical exam: Code(s): Z00.00 - Encounter for general adult medical examination without abnormal find ings Category: Medical Plan: Patient is up-to-date on all recommended routine screenings for her age declines tetanus vaccination at this time. Ordered for additional blood work and we will follow up in 3 months for follow up on GERD. (5) Generalized abdominal pain: Code(s): R10.84 - Generalized abdominal pain Category: Medical Plan: Epigastric pain and reflux symptoms ordered for upper GI series and referral to GI. Plan This note was constructed using voice recognition software. While every effort has been made to ensure accuracy and online trader, still areas may have been included sometimes these areas may affect the content or meeting of the given symptoms. Total time spent caring for the patient today was 30 minutes. This includes time spent before the visit reviewing the chart, time spent during the visit, and time spent after the visit and documentation. Orders: Orders Erythrocyte Sedimentation Rate Today M25.50 - Pain in unspecified joint FL upper GI series Today K21.9 - Gastro-esophageal reflux disease without esophagitis UA CC w/rflx Micro + Cult Today K21.9 - Gastro-esophageal reflux disease without esophagitis, R35.89 - Other polyuria TSH reflex Free T4 Today K21.9 - Gastro-esophageal reflux disease without esophagitis, Z00.00 - Encounter for general adult medical examination without abnormal findings Rheumatoid Factor Today M25.50 - Pain in unspecified joint Reflex Titer and Pattern Today M25.50 - Pain in unspecified joint C Reactive Protein Today M25.50 - Pain in unspecified joint Lipid Panel Today K21.9 - Gastro-esophageal reflux disease without esophagitis, Z00.00 - Encounter for general adult medical examination without abnormal findings Vitamin B12 and Folate Today K21.9 - Gastro-esophageal reflux disease without esophagitis, Z00.00 - Encounter for general adult medical examination without abnormal findings Vitamin D 25-OH (D2 and D3) Today K21.9 - Gastro-esophageal reflux disease without esophagitis, Z00.00 - Encounter for general adult medical examination without abnormal findings Hemoglobin A1c Today K21.9 - Gastro-esophageal reflux disease without esophag itis, Z00.00 - Encounter for general adult medical examination without abnormal findings Referrals Gastroenterology Referral K21.9 - Gastro-esophageal reflux disease without esophagitis, R10.84 - Generalized abdominal pain Medications: New famotidine 20 mg PO BEDTIME 30 tabs 2RF
== END 2024-01-10 09:11 | disposition home or self-care (01) ==
DX: Z00.00 Encounter for general adult medical examination without abnormal findings (principal); K21.9 Gastro-esophageal reflux disease without esophagitis; M25.50 Pain in unspecified joint; R10.2 Pelvic and perineal pain; R10.84 Generalized abdominal pain

== ENCOUNTER 2024-01-10 10:40 | Outpatient (REF) | payer BC, SELFPAY ==
[2024-01-10 11:36] LABS: Appearance Urine Clear; Color Urine Dark Yellow; Glucose Urine UA Negative (Negative); Leukocyte Esterase Urine Negative (Negative); Nitrite Urine Negative (Negative); PH 7.5 (5.0-9.0); Specific Gravity - Urine 1.025 (1.005-1.025); Urine Blood Negative (Negative); Urine Ketones Trace mg/dL (Negative); Urine Protein Negative (Neg-Trace)
[2024-01-10 12:18] LABS: Estimated Average Glucose 117 mg/dL; Hemoglobin A1C 110.2696 umol/L; Hemoglobin A1c % 5.7 % (<6.0); Total Hemoglobin (HGBA1C) 2875.3393 umol/L
[2024-01-10 12:29] LABS: Erythrocyte Sedimentation Rate 2 MM/HR (0-20)
[2024-01-10 12:33] LABS: C Reactive Protein < 0.04 mg/dL (< or = 0.50); Cholesterol 140 mg/dL (<200); HDL Cholesterol 61 mg/dL (>40); LDL Cholesterol Calculated 71 mg/dL (<100); Rheumatoid Factor < 13.0 IU/mL (<15.0); Triglycerides 44 mg/dL (<150)
[2024-01-10 12:44] LABS: TSH reflex Free T4 2.23 uIU/mL (0.32-4.0)
[2024-01-10 13:00] LABS: Vitamin B12 406 pg/mL (200-900)
[2024-01-16 15:28] LABS: Vitamin D 25-OH, D2 <4 ng/mL; Vitamin D 25-OH, D3 32 ng/mL; Vitamin D 25-OH, Total 32 ng/mL (30-100)
[2024-01-17 08:18] LABS: Anti Nuclear Antibody Screen NEGATIVE (NEGATIVE)
== END 2024-01-10 10:41 | disposition home or self-care (01) ==
LOC: HO.HHCL 10:40
DX: Z00.00 Encounter for general adult medical examination without abnormal findings (principal); Z13.6 Encounter for screening for cardiovascular disorders; Z13.1 Encounter for screening for diabetes mellitus; R35.89 Other polyuria; K21.9 Gastro-esophageal reflux disease without esophagitis; M25.50 Pain in unspecified joint
CPT/HCPCS: 36415; 80061; 81003; 82306; 82607; 82746; 83036; 84443; 85652; 86038; 86140; 86431

== ENCOUNTER 2024-02-23 14:07 | Outpatient (REF) | payer BC, SELFPAY ==
[2024-02-23 15:23] LABS: Hematocrit 36.2 % (37.0-47.0); Hemoglobin 11.7 g/dl (12.0-16.0); Mean Corpuscular HGB Conc 32.3 g/dl (31.0-35.0); Mean Corpuscular Hemoglobin 26.4 pg (27.0-33.0); Mean Corpuscular Volume 81.5 fL (80.0-98.0); Mean Platelet Volume 9.5 fL (9.4-12.3); Platelet Count 229 X10*3/uL (160-400); Red Blood Count 4.44 X10*6/uL (4.20-5.50); Red Cell Distribution Width 17.6 % (11.0-16.0); White Blood Count 5.4 X10*3/uL (4.8-10.8)
[2024-02-23 16:02] LABS: HCG Quantitative < 2 mIU/mL
== END 2024-02-23 14:08 | disposition home or self-care (01) ==
LOC: HO.LAB 14:07
PROVIDERS: Visit Provider Advanced Practice Midwife
DX: N92.0 Excessive and frequent menstruation with regular cycle (principal); Z01.419 Encounter for gynecological examination (general) (routine) without abnormal findings
CPT/HCPCS: 36415; 84702; 85027

== ENCOUNTER 2024-02-23 14:07 | Outpatient (AMB) | payer BC, SELFPAY ==
--- NOTE | 2024-02-23 14:08 | A.OFFVIS_ITS ---
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 Doing well with concerns. Regular monthly menses, heavy bleeding for 1 day out of the 3d. She stopped taking her iron supplements as she reported joint and leg pain after initiating a brand that she bought from a [employer]. Hx tubal ligation. Currently is sexually active. She denies vaginal itching and irritation. STI screening offered; she declined. She tries to eat healthy and stays active with exercise. Denies family history of breast, ovarian or colon cancer. Last pap smear 2021, negative. [facility] Medical History (Updated 02/23/24 @ 14:43 by Mariaelena Parker CNM) Well woman exam Pelvic congestion syndrome Uterine fibroid Surgical History Hx of section H/O tubal ligation Social History Housing: Condominium Alcohol intake: never Patient Tobacco Use Status: Never used Tobacco service: No Current occupational status: unemployed Cognitive needs: No Hearing needs: No Vision needs: No Female Reproductive History Menstrual Age of Menarche: 12 Date of last menstrual period: 02/17/24 control method: permanent sterilization Permanent Sterilization: BTL Total pregnancies: 5 Full term: 3 Number of Living Children: 3 Ab spontaneous: 2 Date of last pap smear: 09/02/21 (neg pap and hpv) Review of Systems Const All systems reviewed & are unremarkable except as noted in HPI and below Reports as per HPI Eyes Reports no additional complaints ENT Reports no additional complaints Card Reports no additional complaints Resp Reports no additional complaints GI Reports as per HPI and Reports no additional complaints Reports as per HPI Musc Reports no additional complaints Skin/Breast Reports as per HPI Neuro Reports no additional complaints Psych Reports no additional complaints Endo Reports no additional complaints Luke/Lymph Reports no additional complaints Aller/Immun Reports no additional complaints Physical Exam Vital Signs: Last Vital Signs BP 100/60 02/23/24 14:10 BMI result Body Mass Index 18.4 Const General: cooperative, healthy appearing, no acute distress, well developed and alert Orientation/consciousness: patient oriented x3 HEENT Head: Yes normal to inspection Eyes General: appearance normal, both eyes and all related structures Neck Neck: Yes normal visual inspection Thyroid: Thyroid normal Chest Chest palpation & inspection: normal inspection of the chest and other (no puckering, dimpling, peau de orange, retraction, discharge, masses) Breast/axilla inspection: normal inspection of the breasts Breast/axilla palpation: normal palpation of the breasts Resp Effort & Inspection: normal respiratory effort GI Inspection: Yes normal to inspection Palpation (GI): Soft to palpation Rectal Exam - Female: deferred General: Yes bladder normal to palpation External Female Exam: normal external appearance and normal appearance of the urethra Speculum Exam - Vagina: normal appearance of the vagina, normal palpation, normal vaginal discharge and vaginal bleeding (Small amount) Speculum Exam - Cervix: normal appearance of the cervix and normal palpation Bimanual exam- vagina & uterus: normal bimanual exam, normal palpation, uterine size normal, bladder normal to palpation, normal palpation and non-tender Bimanual Exam- Adnexa, other: no masses OB/external & speculum: vaginal bleeding (Small amount) Skin General skin exam: no rashes or lesions noted Rashes: no rashes Neuro General: patient oriented x3 Cognition (Neuro): normal cognition Extrem General: Yes normal to inspection Psych Attitude: cooperative Thought process: Normal thought process present Assessment & Plan Assessment & Plan (1) Encounter for well woman exam with routine gynecological exam: Code(s): Z01.419 - Encounter for gynecological examination (general) (routine) without abnormal findings Category: Medical (2) Heavy menses: Code(s): N92.0 - Excessive and frequent menstruation with regular cycle Qualifiers: Menorrhagia type: with regular cycle Qualified Code(s): N92.0 - Excessive and frequent menstruation with regular cycle Plan Discussed: Current recommendations for pap smears per ASCCP guidelines. Breast awareness and periodic breast exams. Maintain a healthy lifestyle including a well balanced diet and routine exercise. Plan pelvic ultrasound history of heavy menses and fibroid. Check CBC today. Recent TSH is normal. Follow up pending results in person. Patient verbalizes understanding and agrees to the plan of care. She was given opportunity to ask questions and all questions were answered to the best of my ability. RTO in one year for annual imaging technician examination. This note is constructed using voice recognition software. While every effort has been made to ensure accuracy, supervisor inspecting errors may have been included. Orders: Orders US pelvic and transvaginal Today D21.9 - Benign neoplasm of connective and othe r soft tissue, unspecified, N92.0 - Excessive and frequent menstruation with regular cycle Complete Blood Count no Diff Today N92.0 - Excessive and frequent menstruation with regular cycle HCG Quantitative Today N92.0 - Excessive and frequent menstruation with regular cycle Coding Level of Care Code Est Pt Prev Care 18-39y(33115) Diagnoses Encounter for well woman exam with routine gynecological exam Z01.419 Menorrhagia with regular cycle N92.0 Menorrhagia type: with regular cycle
[2024-02-23 14:10] VITALS: BP 100/60; BMI 18.4
== END 2024-02-23 14:41 | disposition home or self-care (01) ==
PROVIDERS: Visit Provider Advanced Practice Midwife
DX: Z01.419 Encounter for gynecological examination (general) (routine) without abnormal findings (principal); N92.0 Excessive and frequent menstruation with regular cycle
CPT/HCPCS: 99395

== ENCOUNTER 2024-03-01 10:58 | Outpatient (REF) | payer BC, SELFPAY ==
--- NOTE | ~2024-03-01 | US_ITS ---
EXAMINATION:US PELVIS TRANSABDOMINAL AND TRANSVAGINAL CLINICAL INFORMATION: N92.0 - Excessive and frequent menstruation with regular cycle COMPARISON: Prior ultrasound May 31, 2023 LMP: February 17, 2024 FINDINGS: UTERUS: The uterus is anteverted. Size: 7.6 x 3.9 x 3.8 cm. Uterine mass: Intramural uterine mass likely fibroids measure up to 1.3 x 1 x 1 cm. Cervix: There are nabothian cysts otherwise Grossly unremarkable. Endometrium: No ultrasound evidence of endometrial lesion. endometrial thickness measures 0.5 cm, there is a small amount of fluid within the endometrial canal of uncertain etiology. Could be retained menstrual products. ADNEXA: Normal Right ovary: Normal in size. Hypoechoic cystic structure probably hemorrhagic cyst 1.1 cm right ovary. Left ovary: Normal in size. Doppler exam: Normal Doppler flow identified in both ovaries. FREE FLUID: Trace amount of free fluid. OTHER FINDINGS: None US/US pelvic and transvaginal IMPRESSION: 1. Intramural uterine mass likely fibroid 1.3 cm. 2. Small amount of fluid within the endometrial canal of uncertain etiology could be retained menstrual products. 3. Hypoechoic cystic structure in the right ovary 1.1 cm probably hemorrhagic cyst. Electronically signed by: Grisel Diaz MD 03/02/2024 01:06 PM [facility] SINGER
== END 2024-03-01 10:59 | disposition home or self-care (01) ==
LOC: HO.US 10:58
PROVIDERS: Visit Provider Advanced Practice Midwife
DX: N92.0 Excessive and frequent menstruation with regular cycle (principal); D21.9 Benign neoplasm of connective and other soft tissue, unspecified
CPT/HCPCS: 76830; 76856

== ENCOUNTER 2024-04-01 08:16 | Outpatient (REF) | payer BC, SELFPAY ==
--- NOTE | ~2024-04-01 | FL_ITS ---
EXAMINATION: XR FLUOROSCOPY UPPER GI WITH AIR CLINICAL INFORMATION: Reflux. COMPARISON: None TECHNIQUE: Fluoroscopic air contrast upper GI examination was performed utilizing standard techniques with thin and thick barium and effervescent granules. Numerous spot images were obtained. FINDINGS: Dual and single contrast images of the esophagus demonstrate normal caliber, contour, and mucosal pattern. No evidence of stricture, mass, or ulcerations identified. Esophageal peristalsis was normal. No evidence of hiatus hernia identified. No significant gastroesophageal reflux was seen during the course of the examination and on reflux views. Dual contrast and single contrast images of the stomach demonstrated a normal contour. There is a thickened appearance of the gastric rugal folds and the areae gastricae, suggestive of gastritis. No masses or ulcerations are seen. Contrast freely passed into the gastric antrum and duodenal bulb without delay. Single and air-contrast images of the duodenal bulb demonstrate no abnormality. The duodenal sweep has a normal appearance, course, and mucosal fold appearance. FLUOROSCOPY TIME: 2 minutes 49 seconds Number of Spot Images: 8 Number of Cine: 11 DOSE AREA PRODUCT: 800.6 uGy-m2 (microgray-meter squared) FL/FL upper GI series IMPRESSION: 1. Thickened appearance of the gastric rugal folds and the areae gastricae, suggestive of gastritis. This procedure was performed by Dario Reis PA-C, and supervised by Dr. Cheema Electronically signed by: Cornelio Cheema MD 04/02/2024 09:04 AM [facility]
== END 2024-04-01 08:17 | disposition home or self-care (01) ==
LOC: HO.XRAY 08:16
DX: K21.9 Gastro-esophageal reflux disease without esophagitis (principal)
CPT/HCPCS: 74240

== ENCOUNTER → 2024-04-01 08:19 | Outpatient (BNV) | payer BC, SELFPAY | PROVIDERS: Visit Provider Physician Assistant Surgical | DX: K21.9 Gastro-esophageal reflux disease without esophagitis (principal) | CPT/HCPCS: 74246 ==

== ENCOUNTER 2024-04-11 08:30 | Outpatient (AMB) | payer BC, SELFPAY ==
--- NOTE | 2024-04-11 08:33 | A.OFFPC_ITS ---
Vital Signs 04/11/24 08:35 Height 5 ft 3 in Weight 106 lb 8 oz BMI 18.9 BP 110/64 Blood Pressure Location Lt brachial Position Sitting Pulse 76 Pulse Source Pulse Oximeter Temp 97.1 F Temp Source Skin Pulse Oximetry (%) 99 Oxygen Delivery Method Room Air Intake Visit Reasons: f/u GERD and lab work Intake Note: Patient is here to follow up on GERD, Lab results. Sql Database Programmer Required: No Barrel Painter: Not Required per policy Accompanied by: Self / Same As Patient Allergies No Known Allergies [No Known Allergies*] Allergy (Verified 04/11/24 08:35) Medication List - Last Reconciled 04/11/24 by Mireille Wells PA-C famotidine 20 mg PO BEDTIME ferrous sulfate (Feosol) 325 mg PO DAILY Tobacco use date assessed: 04/11/24 Dental Screening Dental Screen Date: 04/11/24 Did you have a dental visit in the last 12 months?: Yes Did you have a dental problem in the last 6 months where you did not have access to dental care?: No Was dental information given to patient?: Patient has dentist HPI f/u GERD and lab work HPI Details 38-year-old female with past medical his tory of GERD, generalized anxiety disorder and pelvic congestion syndrome last seen 12/2023 coming in for follow up.? In review of the notes, [place] [facility] [place] patient complaining of heavy menses and pelvic and transvaginal ultrasound was ordered.? Ultrasound showed uterine fibroid 1.3 cm and hemorrhagic cyst on the right ovary. Patient also completed upper GI series 04/02/2024 for GERD workup which showed thickened appearance of gastric rugal folds suggestive of gastritis. Today she tells us she continues to have heartburn some days are better than others. She notices she will have worsening reflux she has sweet foods such as cookies or candy reflux will typically last throughout the day. When she avoids her triggers foods she can typically go the entirety without acid reflux. She does not feel the famotidine has been helping and has been using as needed instead of scheduled. [facility] Medical History (Updated 04/11/24 @ 09:07 by Mireille Wells PA-C) Well woman exam Pelvic congestion syndrome Uterine fibroid Surgical History Hx of section H/O tubal ligation Social History Housing: Condominium Alcohol intake: never Patient Tobacco Use Status: Never used Tobacco e-Cigarette/Vaping Use: Never Used Second Hand Smoke Exposure: No service: No Current occupational status: unemployed Cognitive needs: No Hearing needs: No Vision needs: No Female Reproductive History Menstrual Age of Menarche: 12 Questionnaire PHQ-9 Over the last 2 weeks, how often have you been bothered by any of the following problems? 1. Little interest or pleasure in doing things: not at all 2. Feeling down, depressed, or hopeless: not at all 3. Trouble falling or staying asleep, or sleeping too much: not at all 4. Feeling tired or having little energy: not at all 5. Poor appetite or overeating: not at all 6. Feeling bad about yourself - or that you are a failure or have let yourself or your family down: not at all 7. Trouble concentrating on things, such as reading the newspaper or watching television: not at all 8. Moving or speaking so slowly that other people could have noticed. Or the opposite - being so fidgety or restless that you have been moving around a lot more than usual: not at all 9. Thoughts that you would be better off or of hurting yourself in some way: not at all Total score: 0 Depression Screening Interpretation: Negative Depression Screening Done: Yes Source: Developed by Drs. Kris Mas, Nicolasa Carson, Kadeem Souza and colleagues, with an educational vamsi from [employer]. Thrive Questionnaire Date Thrive assessed: 04/11/24 I am a: Patient What is your living situation today?: I have a steady place to live Within the past 12 months, did the food you bought not last and you didn't have the money to get more?: Never true Within the past 12 months, did you worry whether your food would run out before you got money to buy more?: Never true Do you have trouble paying for medicines?: No Do you have trouble getting transportation to medical appointments?: No Do you have trouble paying your heating and electricity bill?: No Do you have trouble taking care of your child, family member or friend?: No Do you have trouble with day-to-day activities such as bathing, preparing meals, shopping, managing finances, etc.?: No Are you currently unemployed and looking for a job?: No Are you interested in more education?: No Please select the resources that you would like help with: None Currently or been in a relationship where the following occur: No concerns reported THRIVE Score: 0 AUDIT C Alcohol Use Questionnaire (AUDIT-C) 1. How often do you have a drink containing alcohol?: Never Total Score: 0 KRISTOPHER-7 AMB Questionnaire KRISTOPHER-7 Date KRISTOPHER - 7 assessed: 04/11/24 Feeling nervous, anxious, or on edge: 0 = Not at all Not being able to stop or control worryin = Not at all Worrying too much about different things: 0 = Not at all Trouble relaxin = Not at all Being so restless that it is hard to sit still: 0 = Not at all Becoming easily annoyed or irritable: 0 = Not at all Feeling afraid as if something awful might happen: 0 = Not at all Total KRISTOPHER-7 score (0-4 normal; 5-9 mild; 10-14 moderate; 15-21 severe): 0 Source: Developed by Drs. Kris Mas, Nicolasa Carson, Kadeem Souza and colleagues, with an educational vamsi from [employer]. Review of Systems Const Denies body aches, Denies chills, Denies fever(s), Denies headache(s) and Denies poor appetite Eyes Reports no additional complaints ENT Denies dysphagia, Denies dizziness, Denies headache(s) and Denies odynophagia Card Denies chest pain and Denies dyspnea Resp Denies cough and Denies dyspnea GI Denies abdominal pain, Denies constipation, Denies dysphagia, Reports dyspepsia, Reports heartburn, Denies diarrhea, Reports nausea, Denies odynophagia and Denies vomiting Reports no additional complaints Musc Reports no additional complaints and Denies abnormal gait Skin/Breast Reports system reviewed and no additional complaints, except as documented Neuro Denies abnormal gait, Denies dizziness and Denies headache(s) Psych Reports no additional complaints Physical exam (Primary Care) Vital Signs: Last Vital Signs Temp 97.1 F 04/11/24 08:35 Pulse 76 04/11/24 08:35 BP 110/64 04/11/24 08:35 Pulse Ox 99 04/11/24 08:35 Oxygen Delivery Method Room Air 04/11/24 08:35 BMI result Body Mass Index 18.9 Tobacco/Smoking Status: Tobacco use Status Tobacco use date assessed 04/11/24 04/11/24 08:40 Patient Tobacco Use Status Never used Tobacco 04/11/24 08:35 e-Cigarette/Vaping Use Never Used 04/11/24 08:40 PHQ-9: PHQ-9 Score PHQ-9: Total score 0 04/11/24 08:35 Depression Screening Interpretation: Negative Thrive Assessment: Date of Thrive Assessment Date Thrive assessed 04/11/24 04/11/24 08:35 Currently or been in a relationship where the following occur: No concerns reported Const General: cooperative, healthy appearing, comfortable and no acute distress Orientation/consciousness: patient oriented x3 HENMT Head: Yes normocephalic Ears: hearing grossly normal bilaterally General nose exam: Normal external nose present Eyes General: appearance normal, both eyes and all related structures Conjunctivae: conjunctivae normal Neck Neck: Yes full ROM and Yes no lymphadenopathy Resp Effort & Inspection: normal respiratory effort Auscultation: clear to auscultation bilaterally, no crackles, no rales, no rhonchi and no wheezes Cardio Rate: regular rate Rhythm: regular rhythm Skin General skin exam: no rashes or lesions noted Neuro General: patient oriented x3 Gait exam (Neuro): Normal gait present Extrem General: Yes normal to inspection, Yes full ROM and No edema Psych Affect: normal affect Attitude: cooperative Insight: Good insight present (Psych) Judgement: Good judgement present (Psych) Coding Level of Care Code Est Pt Level 4 (97747) Diagnoses GERD (gastroesophageal reflux disease) K21.9 Anemia D64.9 Generalized joint pain M25.50 Uterine fibroid D25.9 Assessment & Plan Assessment & Plan (1) GERD (gastroesophageal reflux disease): Code(s): K21.9 - Gastro-esophageal reflux disease without esophagitis Category: Medical Plan: Avoid trigger foods such as citrus, tomato products, soda, caffeine, spicy foods and other foods that may be irritating to your stomach. Avoid laying flat 3-4 hours after eating and elevate the head of the bed 30 degrees to prevent acid from moving into the esophagus. Famotidine was discontinued and we will start on omeprazole 20 mg. Patient has GI follow up coming up in June. (2) Anemia: Code(s): D64.9 - Anemia, unspecified Category: Medical Plan: Has been improving since her last blood work hemoglobin 11.7. We will continue to monitor with serial blood work. Patient can not tolerate oral iron (3) Generalized joint pain: Code(s): M25.50 - Pain in unspecified joint Category: Medical Plan: Patient was complaining of generalized joint pain initial workup with a blood work was negative for any acute problem or underlying rheumatologic disease. She does mentioned she was taking oral iron when she was having the joint pains but since discontinuation of the iron has no longer had any joint pains. Continue to monitor symptoms at this time (4) Uterine fibroid: Code(s): D25.9 - Leiomyoma of uterus, unspecified Category: Medical Plan: Patient found to have uterine fibroid on ultrasound has follow up with gynecology next week. Plan This note was constructed using voice recognition software. While every effort has been made to ensure accuracy and signal system testing maintainer, still areas may have been included sometimes these areas may affect the content or meeting of the given symptoms. Total time spent caring for the patient today was 20 minutes. This includes time spent before the visit reviewing the chart, time spent during the visit, and time spent after the visit and documentation. Medications: New omeprazole 20 mg PO DAILY 90 caps 0RF Discontinued famotidine Discontinued Reason: Patient no longer taking 20 mg PO BEDTIME 90 tabs 0RF
[2024-04-11 08:35] VITALS: BP 110/64; PULSE 76; TEMP 36.2; O2SAT 99; BMI 18.9
== END 2024-04-11 09:06 | disposition home or self-care (01) ==
DX: K21.9 Gastro-esophageal reflux disease without esophagitis (principal); D64.9 Anemia, unspecified; M25.50 Pain in unspecified joint; D25.9 Leiomyoma of uterus, unspecified

== ENCOUNTER 2024-05-22 08:19 | Outpatient (AMB) | payer BC, SELFPAY ==
--- NOTE | 2024-05-22 08:21 | A.OFFVIS_ITS ---
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 History of uterine fibroid. Regular menses heavy 1 day out of the cycle of 3-4 days. She denies any pelvic pain, pressure, admits to an occasional bloating mostly associated with her diet. [facility] Medical History (Updated 05/22/24 @ 09:15 by Mariaelena Parker CNM) Well woman exam Pelvic congestion syndrome Uterine fibroid Surgical History Hx of section H/O tubal ligation Social History Housing: Condominium Alcohol intake: never Patient Tobacco Use Status: Never used Tobacco e-Cigarette/Vaping Use: Never Used Second Hand Smoke Exposure: No service: No Current occupational status: unemployed Cognitive needs: No Hearing needs: No Vision needs: No Female Reproductive History Menstrual Age of Menarche: 12 Date of last menstrual period: 04/29/24 Review of Systems Const All systems reviewed & are unremarkable except as noted in HPI and below Endo Reports no additional complaints Physical Exam Vital Signs: Last Vital Signs BP 90/60 05/22/24 08:29 BMI result Body Mass Index 18.8 Const General: cooperative, healthy appearing and no acute distress Psych Appearance: well kempt Attitude: cooperative Thought process: Normal thought process present Results Reviewed Results Reviewed: [address] [address] Ultrasound Report Signed Patient: Arlyn Chacon V MR#: [id number] : 1985 Acct:[id number] Age/Sex: 38 / F ADM Date: 03/01/24 Loc: HO.US Attending Dr: Mariaelena Parker CNM Ordering Physician: Mariaelena Parker CNM Date of Service: 03/01/24 Procedure(s): US pelvic and transvaginal Accession Number(s): [id number] cc: Mariaelena Parker CNM~ EXAMINATION:US PELVIS TRANSABDOMINAL AND TRANSVAGINAL CLINICAL INFORMATION: N92.0 - Excessive and frequent menstruation with regular cycle COMPARISON: Prior ultrasound May 31, 2023 LMP: February 17, 2024 FINDINGS: UTERUS: The uterus is anteverted. Size: 7.6 x 3.9 x 3.8 cm. Uterine mass: Intramural uterine mass likely fibroids measure up to 1.3 x 1 x 1 cm. Cervix: There are nabothian cysts otherwise Grossly unremarkable. Endometrium: No ultrasound evidence of endometrial lesion. endometrial thickness measures 0.5 cm, there is a small amount of fluid within the endometrial canal of uncertain etiology. Could be retained menstrual products. ADNEXA: Normal Right ovary: Normal in size. Hypoechoic cystic structure probably hemorrhagic cyst 1.1 cm right ovary. Left ovary: Normal in size. Doppler exam: Normal Doppler flow identified in both ovaries. FREE FLUID: Trace amount of free fluid. OTHER FINDINGS: None US/US pelvic and transvaginal IMPRESSION: 1. Intramural uterine mass likely fibroid 1.3 cm. 2. Small amount of fluid within the endometrial canal of uncertain etiology could be retained menstrual products. 3. Hypoechoic cystic structure in the right ovary 1.1 cm probably hemorrhagic cyst. Electronically signed by: Grisel Diaz MD 03/02/2024 01:06 PM [facility] Dictated By: Grisel Diaz MD Signed By: <Electronically signed by Grisel Diaz MD in OV> 03/02/24 1306 DD/ 1123 TD/TT: 03/01/24 1135 Sfdc Solution Architect: HS Assessment & Plan Assessment & Plan (1) Uterine fibroid: Code(s): D25.9 - Leiomyoma of uterus, unspecified Category: Medical Qualifiers: Uterine leiomyoma location: unspecified location Qualified Code(s): D25.9 - Leiomyoma of uterus, unspecified (2) Encounter to discuss test results: Code(s): Z71.2 - Person consulting for explanation of examination or test findings Plan: Reviewed ultrasound findings fibroid, hemorrhagic cyst. See report. Plan Counseled re: Leiomyoma: common pelvic neoplasm. Differential diagnosis-may include but not limited to- leiomyosarcoma which is a rare uterine sarcoma 3- 7/100,000, difficult to distinguish from fibroids on ultrasound from uterine sarcoma's. Unlikely any single test will have a highly positive predictive value. Hysterectomy is not recommended for sole purpose of excluding malignant neoplasm. Consult for surgical exploration, medical treatment, other treatments, verses expectant management, pros and cons, risks and benefits. Expectant management follow up in 6 months, then yearly for stability. Patient prefers to proceed with expectant management. Report any PMB/AUB, pelvic pressure, bloating, or pain. Referral to MD if indicated for level of care if indicated. Ultrasound ordered for 03/01/2025, follow up with annual exam scheduled. The patient expressed understanding and agreement with the plan of care. All of her questions and concerns were addressed to the best of my ability. This note is constructed using voice recognition software. While every effort has been made to ensure accuracy, community relations police lieutenant errors may have been included. Orders: Orders US pelvic and transvaginal 02/10/25 D25.9 - Leiomyoma of uterus, unspecified Coding Level of Care Code Est Pt Level 3 (18108) Diagnoses Uterine leiomyoma, unspecified location D25.9 Uterine leiomyoma location: unspecified location Encounter to discuss test results Z71.2
[2024-05-22 08:29] VITALS: BP 90/60; BMI 18.8
== END 2024-05-22 09:09 | disposition home or self-care (01) ==
LOC: HO.HWS 08:19
PROVIDERS: Visit Provider Advanced Practice Midwife
DX: D25.9 Leiomyoma of uterus, unspecified (principal); Z71.2 Person consulting for explanation of examination or test findings
CPT/HCPCS: 99213

== ENCOUNTER → 2024-05-22 08:19 | Outpatient (BNVA) | payer BC, SELFPAY | PROVIDERS: Visit Provider Advanced Practice Midwife ==

== ENCOUNTER 2024-06-18 10:37 | Outpatient (AMB) | payer BC, SELFPAY ==
--- NOTE | 2024-06-18 10:41 | MHC.OFFVIS ---
Vital Signs 06/18/24 10:50 Height 5 ft 3 in Weight 104 lb 15.04 oz BMI 18.6 BP 106/68 Blood Pressure Location Rt brachial Position Sitting Pulse 78 Pulse Source Pulse Oximeter Pulse Oximetry (%) 100 Oxygen Delivery Method Room Air Intake Visit Reasons: GERD and generalized abdominal pain Intake Note: NEW PATIENT for eval of GERD and abd pain. Prior hx of colo/egd? EGD 2007 Chief Complaint; C/O reflux which has shown signs of improvement since starting PPI per PCP. Pt also reports a throat irritation / Dryness , denies dysphagia. Occasional epigastric pain + bloating. No additional concerns at this time. Compliance Associate Required: No Accompanied by: Self / Same As Patient Allergies No Known Allergies [No Known Allergies*] Allergy (Verified 06/18/24 10:52) HPI HPI GERD and generalized abdominal pain: Details: 38-year-old female with past medical history of joint pain, GERD, pelvic congestion syndrome, uterine fibroid is here today for initial consultation. Patient was sent to us by her PCP. Patient reports epigastric pain and reflux. Started on omeprazole back in March. Patient had upper GI series that showed possible gastritis, no hernia no actual reflux was seen on the study. Patient reports that pain has gotten better, however she still has occasional acid reflux specially in the evening. Patient reports that she is trying to avoid dietary triggers. Denies any nausea or vomiting. Moves her bowels without any issues. History of upper endoscopy in the past. No previous diagnosis of H pylori or Barretts. No family history of gastric cancer. Patient reports that sometimes she feels like her throat is dry, denies dyspepsia, dysphagia or odynophagia. Patient denies any other GI concerning symptoms. [facility] Medical History Well woman exam Pelvic congestion syndrome Uterine fibroid Surgical History Hx of section H/O tubal ligation Social History Housing: Condominium Alcohol intake: never Patient Tobacco Use Status: Never used Tobacco e-Cigarette/Vaping Use: Never Used Second Hand Smoke Exposure: No service: No Current occupational status: unemployed Cognitive needs: No Hearing needs: No Vision needs: No Female Reproductive History Menstrual Age of Menarche: 12 Review of Systems Const Denies weight gain and Denies weight loss ENT Reports no additional complaints, Denies dysphagia and Denies odynophagia Card Reports no additional complaints Resp Reports no additional complaints GI Denies abdominal pain, Denies belching, Denies melena, Denies bloating, Denies change in bowel habits, Denies dysphagia, Denies excessive flatus, Denies dyspepsia, Denies heartburn, Denies diarrhea, Denies loose stools, Denies nausea, Denies odynophagia and Denies vomiting Musc Reports no additional complaints Neuro Reports no additional complaints Psych Reports no additional complaints Endo Reports no additional complaints Physical Exam Vital Signs: Last Vital Signs Pulse 78 06/18/24 10:50 BP 106/68 06/18/24 10:50 Pulse Ox 100 06/18/24 10:50 Oxygen Delivery Method Room Air 06/18/24 10:50 BMI result Body Mass Index 18.6 Const General: healthy appearing, no acute distress and well developed Nutritional Appearance: well nourished Orientation/consciousness: patient oriented x3 Resp Effort & Inspection: normal respiratory effort, able to speak in complete sentences, no tracheal deviation and symmetric chest movement Auscultation: clear to auscultation bilaterally Cardio Rate: regular rate GI Inspection: Yes normal to inspection and No distended Palpation (GI): Soft to palpation, not firm, nontender and No hepatosplenomegaly present Auscultation: normal bowel sounds General: Yes no CVA tenderness Back/Spine/Pelvis Back: no CVA tenderness Skin General skin exam: elasticity normal, turgor normal and dry skin Neuro General: patient oriented x3 Psych Appearance: grossly normal Mental Status: mental status grossly normal Results Reviewed Results Reviewed: UPPER GI SERIES 04/01/2024 IMPRESSION: 1. Thickened appearance of the gastric rugal folds and the areae gastricae, suggestive of gastritis. Assessment & Plan Assessment & Plan (1) GERD (gastroesophageal reflux disease): Code(s): K21.9 - Gastro-esophageal reflux disease without esophagitis Category: Medical Qualifiers: Esophagitis presence: esophagitis presence not specified Qualified Code(s): K21.9 - Gastro-esophageal reflux disease without esophagitis (2) Postprandial epigastric pain: Code(s): R10.13 - Epigastric pain (3) Postprandial abdominal bloating: Code(s): R14.0 - Abdominal distension (gaseous) Plan Will rule out celiac, H pylori and chronic pancreatitis. Will check her vitamin-D level. Patient will continue taking omeprazole in the morning half an hour before breakfast. Continue avoiding dietary triggers and late night snacking. Staying upright for minimum 3 hours after meals discussed with patient. Patient will try taking sucralfate at bedtime to help with epigastric pain. Patient will call our office if she continues to have epigastric pain despite taking omeprazole and sucralfate. She will see us in the office in 3-4 months, sooner on as needed basis. Patient will most likely be sent for upper endoscopy if she continues to have symptoms. Patient is agreeable to this plan and verbalizes understanding of instructions. She was given the opportunity to ask questions and all questions answered. Thank you for allowing me to participate in her care Orders: Orders Transglutaminase IgA 06/18/24 R10.9 - Unspecified abdominal pain H pylori Ag Stool 06/20/24 K21.9 - Gastro-esophageal reflux disease without esophagitis Lipase 06/18/24 R10.9 - Unspecified abdominal pain Vitamin D 25-OH (D2 and D3) 06/18/24 E55.9 - Vitamin D deficiency, unspecified Medications: New sucralfate 10 mL PO BEDTIME 400 mL 3RF K21.9 - Gastro-esophageal reflux disease without esophagitis Coding Level of Care Code New Pt Level 4 (20109) Diagnoses Gastroesophageal reflux disease, unspecified whether esophagitis present K21.9 Esophagitis presence: esophagitis presence not specified Postprandial epigastric pain R10.13 Postprandial abdominal bloating R14.0 Time Spent (min) 45 Comment 35 minutes spent with patient and additional 10 minutes spent reviewing her records
[2024-06-18 10:50] VITALS: BP 106/68; PULSE 78; O2SAT 100; BMI 18.6
== END 2024-06-18 11:09 | disposition home or self-care (01) ==
LOC: HO.HGI 10:37
PROVIDERS: Visit Provider Nurse Practitioner Family
DX: K21.9 Gastro-esophageal reflux disease without esophagitis (principal); R10.13 Epigastric pain; R14.0 Abdominal distension (gaseous)
CPT/HCPCS: 99204

== ENCOUNTER 2024-06-18 10:37 | Outpatient (REF) | payer BC, SELFPAY ==
[2024-06-18 12:32] LABS: Lipase 31 U/L (8-78)
[2024-06-19 21:58] LABS: Transglutaminase IgA <1.0 U/mL
[2024-06-22 17:44] LABS: Vitamin D 25-OH, D2 <4 ng/mL; Vitamin D 25-OH, D3 43 ng/mL; Vitamin D 25-OH, Total 43 ng/mL (30-100)
== END 2024-06-18 10:38 | disposition home or self-care (01) ==
LOC: HO.LAB 10:37
PROVIDERS: Visit Provider Nurse Practitioner Family
DX: R10.9 Unspecified abdominal pain (principal); E55.9 Vitamin D deficiency, unspecified
CPT/HCPCS: 36415; 82306; 83690; 86364

== ENCOUNTER 2024-06-20 09:32 | Outpatient (REF) | payer BC, SELFPAY | END 2024-06-20 09:33 | disposition home or self-care (01) | LOC: HO.LNP 09:32 | PROVIDERS: Visit Provider Nurse Practitioner Family | DX: K21.9 Gastro-esophageal reflux disease without esophagitis (principal) | CPT/HCPCS: 87338 ==

== ENCOUNTER 2024-07-10 08:18 | Outpatient (AMB) | payer BC, SELFPAY ==
--- NOTE | 2024-07-10 08:25 | MHC.PC.OV ---
Vital Signs 07/10/24 08:26 Height 5 ft 3 in Weight 105 lb BMI 18.6 BP 112/64 Blood Pressure Location Lt brachial Position Sitting Pulse 74 Pulse Source Pulse Oximeter Temp 97.4 F Temp Source Temporal Artery Scan Pulse Oximetry (%) 99 Oxygen Delivery Method Room Air Intake Visit Reasons: f/u GERD Automatic Driller And Reamer Required: No Accompanied by: Self / Same As Patient Allergies No Known Allergies [No Known Allergies*] Allergy (Verified 07/10/24 08:48) Medication List - Last Reconciled 07/10/24 by Mireille Wells PA-C sucralfate 1 g PO BEDTIME Tobacco use date assessed: 04/11/24 Dental Screening Dental Screen Date: 04/11/24 HPI f/u GERD HPI Details 38-year-old female with past medical history of GERD, generalized anxiety disorder and pelvic congestion syndrome last seen 03/2024 coming in for follow up.?In review of the notes, patient was seen by GI 06/2024 for GERD plan to rule out celiac, H pylori and chronic pancreatitis, continue on omeprazole and follow up in 3-4 months. Patient tells us today her reflux has improved with the 0. She recently had H pylori testing as well as pancreatic function into seek for celiac all of which were normal. She also mentions having developed sores on the top of the mouth over the last week with no recognize trigger. She has been using warm salt water with good improvement. ON LICENSE OF [facility] Medical History Well woman exam Pelvic congestion syndrome Uterine fibroid Surgical History Hx of section H/O tubal ligation Social History Housing: Condominium Alcohol intake: never Patient Tobacco Use Status: Never used Tobacco e-Cigarette/Vaping Use: Never Used Second Hand Smoke Exposure: No service: No Current occupational status: unemployed Cognitive needs: No Hearing needs: No Vision needs: No Female Reproductive History Menstrual Age of Menarche: 12 Questionnaire PHQ-9 Over the last 2 weeks, how often have you been bothered by any of the following problems? 1. Little interest or pleasure in doing things: not at all 2. Feeling down, depressed, or hopeless: not at all 3. Trouble falling or staying asleep, or sleeping too much: not at all 4. Feeling tired or having little energy: not at all 5. Poor appetite or overeating: not at all 6. Feeling bad about yourself - or that you are a failure or have let yourself or your family down: not at all 7. Trouble concentrating on things, such as reading the newspaper or watching television: not at all 8. Moving or speaking so slowly that other people could have noticed. Or the opposite - being so fidgety or restless that you have been moving around a lot more than usual: not at all 9. Thoughts that you would be better off or of hurting yourself in some way: not at all Total score: 0 Source: Developed by Drs. Kris Mas, Nicolasa Carson, Kadeem Souza and colleagues, with an educational vamsi from [employer]. Thrive Questionnaire Date Thrive assessed: 04/11/24 I am a: Patient What is your living situation today?: I have a steady place to live Within the past 12 months, did the food you bought not last and you didn't have the money to get more?: Never true Within the past 12 months, did you worry whether your food would run out before you got money to buy more?: Never true Do you have trouble paying for medicines?: No Do you have trouble getting transportation to medical appointments?: No Do you have trouble paying your heating and electricity bill?: No Do you have trouble taking care of your child, family member or friend?: No Do you have trouble with day-to-day activities such as bathing, preparing meals, shopping, managing finances, etc.?: No Are you currently unemployed and looking for a job?: I choose not to answer this question Are you interested in more education?: No Please select the resources that you would like help with: None Currently or been in a relationship where the following occur: No concerns reported THRIVE Score: 0 AUDIT C Alcohol Use Questionnaire (AUDIT-C) 1. How often do you have a drink containing alcohol?: Never Total Score: 0 KRISTOPHER-7 AMB Questionnaire KRISTOPHER-7 Date KRISTOPHER - 7 assessed: 04/11/24 Feeling nervous, anxious, or on edge: 0 = Not at all Not being able to stop or control worryin = Not at all Worrying too much about different things: 0 = Not at all Trouble relaxin = Not at all Being so restless that it is hard to sit still: 0 = Not at all Becoming easily annoyed or irritable: 0 = Not at all Feeling afraid as if something awful might happen: 0 = Not at all Total KRISTOPHER-7 score (0-4 normal; 5-9 mild; 10-14 moderate; 15-21 severe): 0 Source: Developed by Drs. Kris Mas, Nicolasa Carson, Kadeem Souza and colleagues, with an educational vamsi from [employer]. Review of Systems Const Denies body aches, Denies chills, Denies fever(s), Denies headache(s) and Denies poor appetite Eyes Reports no additional complaints ENT Denies dysphagia, Denies dizziness, Denies headache(s) and Denies odynophagia Card Denies chest pain and Denies dyspnea Resp Denies cough and Denies dyspnea GI Reports abdominal pain (Occasional epigastric), Reports bloating, Denies constipation, Denies dysphagia, Reports dyspepsia, Reports heartburn, Denies diarrhea, Denies nausea, Denies odynophagia and Denies vomiting Reports no additional complaints Musc Reports no additional complaints and Denies abnormal gait Skin/Breast Reports system reviewed and no additional complaints, except as documented Neuro Denies abnormal gait, Denies dizziness and Denies headache(s) Psych Reports no additional complaints Physical exam (Primary Care) Vital Signs: Last Vital Signs Temp 97.4 F 07/10/24 08:26 Pulse 74 07/10/24 08:26 BP 112/64 07/10/24 08:26 Pulse Ox 99 07/10/24 08:26 Oxygen Delivery Method Room Air 07/10/24 08:26 BMI result Body Mass Index 18.6 Tobacco/Smoking Status: Tobacco use Status Tobacco use date assessed 04/11/24 07/10/24 08:30 Patient Tobacco Use Status Never used Tobacco 07/10/24 08:30 e-Cigarette/Vaping Use Never Used 07/10/24 08:30 PHQ-9: PHQ-9 Score PHQ-9: Total score 0 07/10/24 08:30 Thrive Assessment: Date of Thrive Assessment Date Thrive assessed 04/11/24 07/10/24 08:30 Currently or been in a relationship where the following occur: No concerns reported Const General: cooperative, healthy appearing, comfortable and no acute distress Orientation/consciousness: patient oriented x3 HENMT Other: Cluster of small aphthous ulcers on the roof of the mouth Head: Yes normocephalic Ears: hearing grossly normal bilaterally General nose exam: Normal external nose present Eyes General: appearance normal, both eyes and all related structures Conjunctivae: conjunctivae normal Neck Neck: Yes full ROM and Yes no lymphadenopathy Resp Effort & Inspection: normal respiratory effort Auscultation: clear to auscultation bilaterally, no crackles, no rales, no rhonchi and no wheezes Cardio Rate: regular rate Rhythm: regular rhythm Skin General skin exam: no rashes or lesions noted Neuro General: patient oriented x3 Gait exam (Neuro): Normal gait present Extrem General: Yes normal to inspection, Yes full ROM and No edema Psych Affect: normal affect Attitude: cooperative Insight: Good insight present (Psych) Judgement: Good judgement present (Psych) Coding Level of Care Code Est Pt Level 3 (50899) Diagnoses Gastroesophageal reflux disease, unspecified whether esophagitis present K21.9 Esophagitis presence: esophagitis presence not specified Generalized abdominal pain R10.84 Aphthous ulcer K12.0 Assessment & Plan Assessment & Plan (1) GERD (gastroesophageal reflux disease): Code(s): K21.9 - Gastro-esophageal reflux disease without esophagitis Category: Medical Qualifiers: Esophagitis presence: esophagitis presence not specified Qualified Code(s): K21.9 - Gastro-esophageal reflux disease without esophagitis Plan: Avoid trigger foods such as citrus, tomato products, soda, caffeine, spicy foods and other foods that may be irritating to your stomach. Avoid laying flat 3-4 hours after eating and elevate the head of the bed 30 degrees to prevent acid from moving into the esophagus. Continue on omeprazole and sucralfate. Continue to follow with GI. Patient also complaining of bloating symptoms planned add simethicone as needed to medication regimen. (2) Generalized abdominal pain: Code(s): R10.84 - Generalized abdominal pain Category: Medical Plan: Continue to follow with GI at this time. Abdominal pain has improved since starting on GERD regimen. (3) Aphthous ulcer: Code(s): K12.0 - Recurrent oral aphthae Category: Medical Plan: Recommend the use of warm salt water gargles. Avoid citrus foods and practice gentle brushing. If ulcers persist please reach out to the office for further evaluation. Plan This note was constructed using voice recognition software. While every effort has been made to ensure accuracy and hatch supervisor, still areas may have been included sometimes these areas may affect the content or meeting of the given symptoms. Total time spent caring for the patient today was 20 minutes. This includes time spent before the visit reviewing the chart, time spent during the visit, and time spent after the visit and documentation. Medications: New simethicone (Gas Relief (simethicone)) 180 mg PO DAILY 30 caps 0RF Refilled omeprazole 20 mg PO DAILY 90 caps 1RF
[2024-07-10 08:26] VITALS: BP 112/64; PULSE 74; TEMP 36.3; O2SAT 99; BMI 18.6
== END 2024-07-10 09:02 | disposition home or self-care (01) ==
LOC: HO.HMCH 08:19
DX: K21.9 Gastro-esophageal reflux disease without esophagitis (principal); R10.84 Generalized abdominal pain; K12.0 Recurrent oral aphthae

== ENCOUNTER 2024-09-24 10:25 | Outpatient (AMB) | payer BC, SELFPAY ==
--- NOTE | 2024-09-24 10:27 | MHC.OFFVIS ---
Vital Signs 09/24/24 10:28 Height 5 ft 3 in Weight 102 lb BMI 18.1 BP 98/56 L Blood Pressure Location Lt brachial Position Sitting Pulse 74 Pulse Oximetry (%) 100 Oxygen Delivery Method Room Air Intake Visit Reasons: 3m gerd Intake Note: Patient 3 month follow up for GERD. Patient denies any GI issues for today visit. Shrimp Packer Required: No Accompanied by: Self / Same As Patient Allergies No Known Allergies (No Known Allergies*) Allergy (Verified 09/24/24 10:27) Medication List - Last Reconciled 09/24/24 by Kerry Vidal, MANAGER STORAGE- HPI HPI 3m gerd: Details: LAST VISIT GERD (gastroesophageal reflux disease) Postprandial epigastric pain Postprandial abdominal bloating Plan Will rule out celiac, H pylori and chronic pancreatitis. Will check her vitamin-D level. Patient will continue taking omeprazole in the morning half an hour before breakfast. Continue avoiding dietary triggers and late night snacking. Staying upright for minimum 3 hours after meals discussed with patient. Patient will try taking sucralfate at bedtime to help with epigastric pain. Patient will call our office if she continues to have epigastric pain despite taking omeprazole and sucralfate. She will see us in the office in 3-4 months, sooner on as needed basis. Patient will most likely be sent for upper endoscopy if she continues to have symptoms. Patient is agreeable to this plan and verbalizes understanding of instructions. She was given the opportunity to ask questions and all questions answered. ? Thank you for allowing me to participate in her care Orders Transglutaminase IgA 06/18/24 R10.9 H pylori Ag Stool 06/20/24 K21.9 Lipase 06/18/24 R10.9 Vitamin D 25-OH (D2 and D3) 06/18/24 E55.9 New sucralfate 10 mL PO BEDTIME 400 mL 3RF K21.9 TODAY'S VISIT: Patient is here today for follow-up and to discuss lab results. Patient reports that she is doing well only if she is very strict with her diet, however that limits her to very few things that she can eat. Patient otherwise will have epigastric pain nausea and bloating. Lab work was normal. Patient denies nausea or vomiting. Reports that she is moving her bowels. Not always feels like she empties completely. Patient reports that if she drinks her juices that she makes from fresh fruits and eats dry fruits she will have a normal bowel movement. Patient reports occasional dyspepsia without dysphagia or odynophagia. Currently patient is not taking any medication. Stopped taking PPI and sucralfate. [facility] Medical History Well woman exam Pelvic congestion syndrome Uterine fibroid Surgical History Hx of section H/O tubal ligation Social History Housing: Condominium Alcohol intake: never Patient Tobacco Use Status: Never used Tobacco e-Cigarette/Vaping Use: Never Used Second Hand Smoke Exposure: No service: No Current occupational status: unemployed Cognitive needs: No Hearing needs: No Vision needs: No Female Reproductive History Menstrual Age of Menarche: 12 Physical Exam Vital Signs: Oxygen Delivery Method Room Air 09/24/24 10:28 BMI result Body Mass Index 18.1 Assessment & Plan Assessment & Plan (1) GERD (gastroesophageal reflux disease): Code(s): K21.9 - Gastro-esophageal reflux disease without esophagitis Category: Medical Qualifiers: Esophagitis presence: esophagitis presence not specified Qualified Code(s): K21.9 - Gastro-esophageal reflux disease without esophagitis (2) Generalized abdominal pain: Code(s): R10.84 - Generalized abdominal pain Category: Medical (3) Postprandial epigastric pain: Code(s): R10.13 - Epigastric pain (4) Postprandial abdominal bloating: Code(s): R14.0 - Abdominal distension (gaseous) Plan Patient will be sent for upper endoscopy. She continues with epigastric pain. Very limited to what she can eat. Referral to dietitian offered, patient declined. Patient states that she will try elimination diet on her own. She will try [id number] digestive enzymes to see if that will help. Patient will be sent for upper endoscopy to rule out duodenitis, gastritis, esophagitis. Currently she is not taking any PPI or H2 jose f and we will wait until she goes for the procedure. Order placed for fecal calprotectin to rule out Crohn's. Patient denies any issues with anesthesia in the past. No history of sleep apnea. Not on any anticoagulation medication. I will see patient after the procedure, sooner on as needed basis. Patient is agreeable to current plan of care and verbalizes understanding of instructions. She was given the opportunity to ask questions and all questions answered. Thank you for allowing me to participate in her care Orders: Orders Calprotectin, Fecal Today R15.9 - Full incontinence of feces Coding Level of Care Code Est Pt Level 4 (15475) Complex EM visit Add On G2211 Diagnoses Gastroesophageal reflux disease, unspecified whether esophagitis present K21.9 Esophagitis presence: esophagitis presence not specified Generalized abdominal pain R10.84 Postprandial epigastric pain R10.13 Postprandial abdominal bloating R14.0 Time Spent (min) 35 Comment 25 minutes spent with patient and additional 10 minutes spent reviewing her records
[2024-09-24 10:28] VITALS: BP 98/56; PULSE 74; O2SAT 100; BMI 18.1
== END 2024-09-24 12:02 | disposition home or self-care (01) ==
LOC: HO.HGI 10:26
PROVIDERS: Visit Provider Nurse Practitioner Family
DX: K21.9 Gastro-esophageal reflux disease without esophagitis (principal); R10.84 Generalized abdominal pain; R10.13 Epigastric pain; R14.0 Abdominal distension (gaseous)
CPT/HCPCS: 99214

== ENCOUNTER 2025-01-09 08:06 | Outpatient (REF) | payer BC, SELFPAY ==
[2025-01-09 09:30] LABS: MANUAL DIFF FLAG NO
[2025-01-09 10:40] LABS: Hematocrit 32.9 % (37.0-47.0); Hemoglobin 9.8 g/dl (12.0-16.0); Imm Gran Abs Auto 0.00 X10*3/uL (0.00-0.03); Imm Gran Pct Auto 0.0 % (0.0-0.4); Lymphocytes Absolute Auto 1.4 X10*3/uL (1.2-4.9); Mean Corpuscular HGB Conc 29.8 g/dl (31.0-35.0); Mean Corpuscular Hemoglobin 21.7 pg (27.0-33.0); Mean Corpuscular Volume 72.9 fL (80.0-98.0); NRBC Abs Auto 0.000 X10*3/uL (0.0-0.012); NRBC Pct Auto 0.0 /100WBC (0.0-0.2); Platelet Count 302 X10*3/uL (160-400); Red Blood Count 4.51 X10*6/uL (4.20-5.50); White Blood Count 4.0 X10*3/uL (4.8-10.8)
[2025-01-09 11:34] LABS: Alanine Aminotransferase 25 U/L (0-31); Albumin Level 4.5 g/dL (3.5-5.0); Alkaline Phosphatase 58 U/L (39-117); Anion Gap 11 (12-20); Aspartate Amino Transferase 29 U/L (5-31); Blood Urea Nitrogen 10 mg/dL (9-16); Calcium 9.0 mg/dL (8.4-10.2); Carbon Dioxide 30 mmol/L (22-29); Chloride 103 mmol/L (96-108); Cholesterol 151 mg/dL (<200); Estimated Glomerular Filt Rate > 60; HDL Cholesterol 59 mg/dL (>40); Iron 22 mcg/dL (30-160); Percent Iron Saturation 5 % (15-50); Potassium 4.2 mmol/L (3.3-5.1); Sodium 140 mmol/L (135-145); Total Iron Binding Capacity 403 mcg/dL (228-428); Total Protein 7.5 g/dL (6.5-8.0); Triglycerides 42 mg/dL (<150); Unsaturated Iron Binding 381 ug/dL
[2025-01-09 11:41] LABS: Ferritin 8 ng/mL (10-122)
[2025-01-09 11:51] LABS: Folate 11.8 ng/mL (> or = 4.0); Vitamin B12 427 pg/mL (200-900)
== END 2025-01-09 08:07 | disposition home or self-care (01) ==
LOC: HO.LAB 08:06
DX: Z00.00 Encounter for general adult medical examination without abnormal findings (principal); R10.84 Generalized abdominal pain; D64.9 Anemia, unspecified; K21.9 Gastro-esophageal reflux disease without esophagitis; R10.13 Epigastric pain; N94.89 Other specified conditions associated with female genital organs and menstrual cycle; L29.9 Pruritus, unspecified; Z13.21 Encounter for screening for nutritional disorder; Z13.29 Encounter for screening for other suspected endocrine disorder; Z13.0 Encounter for screening for diseases of the blood and blood-forming organs and certain disorders involving the immune mechanism; Z13.220 Encounter for screening for lipoid disorders
CPT/HCPCS: 36415; 80053; 80061; 82306; 82607; 82728; 82746; 83540; 84443; 85025; 96127

== ENCOUNTER 2025-01-09 08:06 | Outpatient (AMB) | payer BC, SELFPAY ==
--- NOTE | 2025-01-09 08:10 | A.OFFPC_ITS ---
Vital Signs 01/09/25 08:11 Height 5 ft 3 in Weight 102 lb 4 oz BMI 18.1 BP 100/68 Blood Pressure Location Lt brachial Position Sitting Pulse 80 Pulse Source Pulse Oximeter Temp Source Temporal Artery Scan Pulse Oximetry (%) 95 Oxygen Delivery Method Room Air Intake Visit Reasons: Annual Exam Intake Note: Patient is here today for a physical. Burring Wheel Operator Required: No Senior Site Manager: Not Required per policy Accompanied by: Self / Same As Patient Allergies No Known Allergies (No Known Allergies*) Allergy (Verified 01/09/25 08:28) Medication List - Last Reconciled 01/09/25 by Mireille Wells PA-C No Known Home Meds Tobacco use date assessed: 01/09/25 Dental Screening Dental Screen Date: 04/11/24 Did you have a dental visit in the last 12 months?: Yes Did you have a dental problem in the last 6 months where you did not have access to dental care?: No Was dental information given to patient?: Patient has dentist HPI Annual Exam HPI Details 39-year-old female with past medical his tory of uterine fibroid, pelvic congestion syndrome, generalized anxiety disorder, GERD last seen 06/2024 coming in for annual exam. In review of the notes, patient was seen by GI 09/2024 abdominal pain and bloating plan for upper endoscopy awaiting scheduling. Presenting for annual exam and to discuss nocturnal epigastric pain. Over the last month she has had 3-4 episodes of stomach burning at nighttime associated with coughing. She finds relief by drinking tea with lemon juice and honey. The symptoms are exacerbated by heavy or fried foods, while medical assistant internal medicine foods like oatmeal and avocado do not cause issues. She has previous history of using famotidine to omeprazole but feels her symptoms are not consistent enough to warrant treatment. She has been unable to reschedule a previously planned endoscopy. She also has a history of pelvic congestion syndrome which is managed by her duplicating machine servicer and presents as lower abdominal pain exacerbated by cold exposure. She is scheduled for a follow-up ultrasound in February and will see her duplicating machine servicer next September. Pap smear: 08/2021 following with cement loader Mammogram: She will be due next year Vaccinations: declining today [facility] Medical History Well woman exam Pelvic congestion syndrome Uterine fibroid Surgical History Hx of section H/O tubal ligation Social History Housing: Condominium Alcohol intake: never Patient Tobacco Use Status: Never used Tobacco Tobacco use type: Cigarette e-Cigarette/Vaping Use: Never Used Second Hand Smoke Exposure: No service: No Current occupational status: unemployed Cognitive needs: No Hearing needs: No Vision needs: No Female Reproductive History Menstrual Age of Menarche: 12 Questionnaire PHQ-9 Over the last 2 weeks, how often have you been bothered by any of the following problems? 1. Little interest or pleasure in doing things: several days 2. Feeling down, depressed, or hopeless: not at all 3. Trouble falling or staying asleep, or sleeping too much: not at all 4. Feeling tired or having little energy: several days 5. Poor appetite or overeating: not at all 6. Feeling bad about yourself - or that you are a failure or have let yourself or your family down: not at all 7. Trouble concentrating on things, such as reading the newspaper or watching television: not at all 8. Moving or speaking so slowly that other people could have noticed. Or the opposite - being so fidgety or restless that you have been moving around a lot more than usual: not at all 9. Thoughts that you would be better off or of hurting yourself in some way: not at all Total score: 2 Depression Screening Interpretation: Negative Depression Screening Done: Yes Source: Developed by Drs. Kris Mas, Nicolasa Carson, Kadeem Souza and colleagues, with an educational vamsi from [employer]. Thrive Questionnaire Date Thrive assessed: 07/10/24 I am a: Patient What is your living situation today?: I have a steady place to live Within the past 12 months, did the food you bought not last and you didn't have the money to get more?: Never true Within the past 12 months, did you worry whether your food would run out before you got money to buy more?: Never true Do you have trouble paying for medicines?: No Do you have trouble getting transportation to medical appointments?: No Do you have trouble paying your heating and electricity bill?: No Do you have trouble taking care of your child, family member or friend?: No Do you have trouble with day-to-day activities such as bathing, preparing meals, shopping, managing finances, etc.?: No Are you currently unemployed and looking for a job?: I choose not to answer this question Are you interested in more education?: No Please select the resources that you would like help with: None Currently or been in a relationship where the following occur: No concerns reported THRIVE Score: 0 AUDIT C Alcohol Use Questionnaire (AUDIT-C) 1. How often do you have a drink containing alcohol?: Never 3. How often do you have six or more drinks on one occasion?: Never Total Score: 0 KRISTOPHER-7 AMB Questionnaire KRISTOPHER-7 Date KRISTOPHER - 7 assessed: 04/11/24 Feeling nervous, anxious, or on edge: 0 = Not at all Not being able to stop or control worryin = Not at all Worrying too much about different things: 0 = Not at all Trouble relaxin = Not at all Being so restless that it is hard to sit still: 0 = Not at all Becoming easily annoyed or irritable: 0 = Not at all Feeling afraid as if something awful might happen: 0 = Not at all Total KRISTOPHER-7 score (0-4 normal; 5-9 mild; 10-14 moderate; 15-21 severe): 0 Source: Developed by Drs. Kris Mas, Nicolasa Carson, Kadeem Souza and colleagues, with an educational vamsi from [employer]. Review of Systems Const Denies body aches, Denies fatigue, Denies fever(s), Denies frequent falls, Denies headache(s) and Denies weakness Eyes Reports no additional complaints and Denies change in vision ENT Denies dysphagia, Denies dizziness, Denies facial pain, Denies headache(s), Denies nasal congestion and Denies odynophagia Card Denies chest pain, Denies syncope, Denies irregular heart rhythm, Denies leg edema, Denies lightheadedness and Denies dyspnea Resp Denies cough and Denies dyspnea GI Reports abdominal pain (at night only ), Denies constipation, Denies dysphagia, Denies dyspepsia, Reports heartburn, Denies diarrhea, Denies nausea, Denies odynophagia and Denies vomiting Denies urinary frequency, Denies dysuria, Denies urinary hesitancy and Denies urinary urgency Musc Denies back pain and Denies myalgias Skin/Breast Reports system reviewed and no additional complaints, except as documented Neuro Denies dizziness, Denies syncope, Denies frequent falls, Denies headache(s) and Denies weakness Psych Reports no additional complaints Endo Denies fatigue Physical exam (Primary Care) Vital Signs: Last Vital Signs Pulse 80 01/09/25 08:11 BP 100/68 01/09/25 08:11 Pulse Ox 95 01/09/25 08:11 Oxygen Delivery Method Room Air 01/09/25 08:11 BMI result Body Mass Index 18.1 Tobacco/Smoking Status: Tobacco use Status Tobacco use date assessed 01/09/25 01/09/25 08:12 Patient Tobacco Use Status Never used Tobacco 01/09/25 08:12 Tobacco use type Cigarette 01/09/25 08:17 e-Cigarette/Vaping Use Never Used 01/09/25 08:12 PHQ-9: PHQ-9 Score PHQ-9: Total score 2 01/09/25 08:21 Depression Screening Interpretation: Negative Thrive Assessment: Date of Thrive Assessment Date Thrive assessed 07/10/24 01/09/25 08:12 Currently or been in a relationship where the following occur: No concerns reported Const General: cooperative, healthy appearing, comfortable and no acute distress Orientation/consciousness: patient oriented x3 HENMT Head: Yes normocephalic Ears: hearing grossly normal bilaterally, external ears normal, TM's normal bilaterally and EAC's normal General nose exam: Normal external nose present Face and sinus: Yes normal facial exam and Yes sinuses nontender Mouth: Normal oral and palatal mucosa present and tongue normal Throat: Yes posterior oropharynx normal Eyes General: appearance normal, both eyes and all related structures Conjunctivae: conjunctivae normal Pupils: Equal, round and reactive pupils present EOM: EOMs intact bilaterally and No Nystagmus present Neck Neck: Yes normal visual inspection, Yes full ROM and Yes no lymphadenopathy Chest Chest palpation & inspection: normal inspection of the chest Resp Effort & Inspection: normal respiratory effort Auscultation: clear to auscultation bilaterally, no crackles, no rales, no rhonchi, no wheezes and breath sounds present Cardio Rate: regular rate Rhythm: regular rhythm Peripheral pulses: radial pulses present and dorsalis pedis present GI Inspection: Yes normal to inspection and No Abdominal wall edema Palpation (GI): Soft to palpation, not firm, Tenderness to palpation present (GI) in the epigastrum and suprapubicly, no guarding, not rigid and No Rebound tenderness present Auscultation: normal bowel sounds Rectal Exam - Female: deferred General: Yes no CVA tenderness Back/Spine/Pelvis Back: no CVA tenderness Skin General skin exam: no rashes or lesions noted Neuro General: patient oriented x3 Cranial nerves: Yes Equal, round and reactive pupils present, Yes Midline tongue present, Yes Ability to bilaterally elevate shoulders present and No Nystagmus present Gait exam (Neuro): Normal gait present Extrem General: Yes normal to inspection, Yes full ROM, No no pedal edema and No edema Psych Speech and movement: Normal speech and movement present Affect: normal affect Insight: Good insight present (Psych) Judgement: Good judgement present (Psych) Coding Level of Care Code Est Pt Prev Care 18-39y(77277) Diagnoses Annual physical exam Z00.00 Gastroesophageal reflux disease, unspecified whether esophagitis present K21.9 Esophagitis presence: esophagitis presence not specified Pelvic congestion syndrome N94.89 Generalized abdominal pain R10.84 Ear itching L29.9 Assessment & Plan Assessment & Plan (1) Annual physical exam: Code(s): Z00.00 - Encounter for general adult medical examination without abnormal findings Category: Medical Plan: Patient is up-to-date on all recommended routine screenings and vaccinations for her age. Healthy diet and regular exercise is encouraged. She is due for blood work in orders have been placed today. (2) GERD (gastroesophageal reflux disease): Code(s): K21.9 - Gastro-esophageal reflux disease without esophagitis Category: Medical Qualifiers: Esophagitis presence: esophagitis presence not specified Qualified Code(s): K21.9 - Gastro-esophageal reflux disease without esophagitis Plan: Avoid trigger foods such as citrus, tomato products, soda, caffeine, spicy foods and other foods that may be irritating to your stomach. Avoid laying flat 3-4 hours after eating and elevate the head of the bed 30 degrees to prevent acid from moving into the esophagus. Discussed dietary and lifestyle modification. Patient finds relief with drinking tea with honey and lemon and she will continue with this at this time. Offered medication help with acid reflux which was declined. (3) Pelvic congestion syndrome: Code(s): N94.89 - Other specified conditions associated with female genital organs and menstrual cycle Category: Medical Plan: Continue to follow up with [facility] gynecology. She does have suprapubic tenderness on exam which she states is chronic and typically resolves with warm compression. Discussed the use of a hot water bottle for symptoms and continue to follow up with gynecology with upcoming ultrasound (4) Generalized abdominal pain: Code(s): R10.84 - Generalized abdominal pain Category: Medical Plan: For generalized abdominal pain patient has been following with [facility] Gastroenterology. Plan for upper endoscopy which is in the process of being scheduled for this patient. Advised patient to reach out to GI as she did miss a phone call from their office. (5) Ear itching: Code(s): L29.9 - Pruritus, unspecified Category: Medical Plan: The patient reports nocturnal pruritus of the ears. Although the ear canals appear normal on exam, ear drops will be prescribed for as-needed use to help hydrate the canal and relieve the itching. Plan This note was constructed using voice recognition software. While every effort has been made to ensure accuracy and laundry tub maker, still areas may have been included sometimes these areas may affect the content or meeting of the given symptoms. Total time spent caring for the patient today was 30 minutes. This includes time spent before the visit reviewing the chart, time spent during the visit, and time spent after the visit and documentation. Patient was informed and verbally consented to the use of an ambient scribe for clinic note documentation during this visit. Orders: Orders Comprehensive Met. Panel Today R10.84 - Generalized abdominal pain, Z00.00 - Encounter for general adult medical examination without abnormal findings Complete Blood Count Auto Diff Today D64.9 - Anemia, unspecified, Z13.0 - Encounter for screening for diseases of the blood and blood-forming organs and certain disorders involving the immune mechanism Vitamin B12 and Folate Today D64.9 - Anemia, unspecified, Z13.21 - Encounter for screening for nutritional disorder Vitamin D 25-OH Total Today Z13.21 - Encounter for screening for nutritional disorder TSH reflex Free T4 Today Z13.29 - Encounter for screening for other suspected endocrine disorder Lipid Panel Today Z13.220 - Encounter for screening for lipoid disorders
[2025-01-09 08:11] VITALS: BP 100/68; PULSE 80; O2SAT 95; BMI 18.1
== END 2025-01-09 08:58 | disposition home or self-care (01) ==
LOC: HO.HMCH 08:07
DX: Z00.00 Encounter for general adult medical examination without abnormal findings (principal); K21.9 Gastro-esophageal reflux disease without esophagitis; N94.89 Other specified conditions associated with female genital organs and menstrual cycle; R10.84 Generalized abdominal pain; L29.9 Pruritus, unspecified

== ENCOUNTER 2025-02-10 10:35 | Outpatient (REF) | payer BC, SELFPAY ==
--- NOTE | ~2025-02-10 | US_ITS ---
CLINICAL HISTORY: D25.9 - Leiomyoma of uterus, unspecified --- Additional Notes or Special Instructions: Fibroid check for stability Ultrasound of the female pelvis Comparison: US/SR - US PELVIS TRANSABDOMINAL AND TRANSVAGINAL - 03/01/24 11:22 EST Technique: Grayscale ultrasound with assistance of color Doppler. Transabdominal scanning performed for overall anatomy. Transvaginal scanning performed for better anatomic delineation. Findings: Anteverted uterus measures 7.8 x 4.2 x 5.5 cm. Mildly heterogeneous myometrium, intramural fibroid in the anterior fundus 2.6 x 2.1 x 2.0 cm, previously 1.3 cm. scar noted at the anterior lower uterine segment. Small anechoic fluid in the endometrial cavity, endometrium excluding the fluid measures 5-6 mm, no discrete lesion is seen. Small nabothian cysts. Normal right ovary, 2.6 x 2.7 x 2.2 cm. No abnormal vascular flow. Normal left ovary, 4.4 x 1.0 x 3.7 cm. Dominant follicle 2.8 cm. No abnormal vascular flow. No free fluid. Impression: 1. Progressive uterine fibroid. 2. Small endometrial fluid, non-specific. This document has been electronically signed by: Apple Perez MD on 02/10/2025 13:31:59
== END 2025-02-10 10:36 | disposition home or self-care (01) ==
LOC: HO.US 10:35
PROVIDERS: Visit Provider Advanced Practice Midwife
DX: D25.9 Leiomyoma of uterus, unspecified (principal)
CPT/HCPCS: 76830; 76856

== ENCOUNTER → 2025-02-10 10:37 | Outpatient (BNV) | payer BC, SELFPAY | PROVIDERS: Visit Provider Radiology Diagnostic Radiology | DX: D25.1 Intramural leiomyoma of uterus (principal) | CPT/HCPCS: 76830; 76856 ==